=== PATIENT | female | born 1940 | race Caucasian/White ===

== ENCOUNTER 2016-10-09 08:21 | Emergency (ER) | payer MEDICARE, OTHER ==
[~2016-10-09] VITALS: Ht 165.1 cm; Wt 63.5 kg
[2016-10-09 08:26] VITALS: BP 157/75; PULSE 78; RESP 19; TEMP 98; O2SAT 96
--- NOTE | 2016-10-09 08:52 | PD ---
HPI Chief Complaint: Skin Problem Time Seen by Provider: 08:40 Travel History International Travel<30 days: No Contact w/Intl Traveler<30days: No Traveled to known affect area: No History of Present Illness HPI The patient was seen and examined in the presence of the nurse. She complains of rash. She's had a red rash on her arms primarily but also a bit on her legs for the last 2 months. She seen her primary physician and her multifocal button inspector for this and the rash is still present so she came to the ER. She has some minor itching. She's been placing hydrocortisone cream on it. Her multifocal button inspector told her it came from her pet PFSH Past Medical History Hx Anticoagulant Therapy: No Anxiety: Yes Cardiovascular Problems: Yes (2 [place]) High Cholesterol: Yes Cerebrovascular Accident: Yes (CVA) Diabetes: No Diminished Hearing: No Immunizations Current: Yes Menopausal: Yes Dilation and Curettage (D&C): Yes Past Surgical History Hysterectomy: Yes (Partial 1979.) Tonsillectomy: Yes Other Surgery: Yes (ANAL FISSURE) Social History Alcohol Use: No Tobacco Use: No Substance Use: No Allergies-Medications (Allergen,Severity, Reaction): Coded Allergies: Sulfa (Verified Allergy, Severe, WAS A CHILD WHEN HAPPENED AND NOT SURE WHAT HAPPENED, 10/09/16) Reported Meds & Prescriptions Reported Meds & Active Scripts Active No Active Prescriptions or Reported Medications Review of Systems General / Constitutional: No: Fever HENT: No: Headaches Cardiovascular: No: Chest Pain or Discomfort Physical Exam Narrative Psych: Normal mood and affect. Normal insight and judgment. SKIN: Inspection shows no ulcers. Palpation shows no induration or nodules. She has macular erythema on the forearms and a bit on the shins. No vesicle or raised lesions. Data Data Last Documented VS Vital Signs Date Time Temp Pulse Resp B/P Pulse Ox O2 Delivery O2 Flow Rate FiO2 10/09/16 08:26 98.0 78 19 157/75 96 MDM Medical Decision Making Medical Screen Exam Complete: Yes Emergency Medical Condition: Yes Medical Record Reviewed: Yes Differential Diagnosis Allergic reaction, dermatitis, eczema Narrative Course I have reviewed the patient's electronic record Recommending patient follow-up with her multifocal button inspector who has already seen this rash and instituted treatment. No emergent recommendations beyond that Diagnosis Primary Impression: Rash Additional Instructions: Follow-up with multifocal button inspector Med/Other Pt SpecificInfo: Other Scripts No Active Prescriptions or Reported Meds Disposition: 01 DISCHARGE HOME Condition: Clinton Mcdonald MD Oct 09, 2016 08:52
== END 2016-10-09 09:08 | disposition home or self-care (01) ==
LOC: PHED 08:21
DX: R21 Rash and other nonspecific skin eruption (principal); E78.00 Pure hypercholesterolemia, unspecified; F41.9 Anxiety disorder, unspecified; Z86.73 Personal history of transient ischemic attack (TIA), and cerebral infarction without residual deficits; I25.2 Old myocardial infarction
CPT/HCPCS: 99282

== ENCOUNTER 2017-01-12 14:52 | Emergency (ER) | payer MEDICARE, OTHER ==
--- NOTE | 2017-01-12 15:09 | PD ---
HPI Chief Complaint: Altered Mental Status Time Seen by Provider: 15:03 Travel History International Travel<30 days: No Contact w/Intl Traveler<30days: No History of Present Illness HPI Patient presents accompanied by her [id number]. Patient states that she doesn't think she is given a make it through the night. States things are shutting down. States her speech has been shutting down since yesterday. Denies any nausea vomiting diarrhea or fever. Denies any new chest pain shortness of breath urinary or bowel symptoms. Reports a rash that feels like it's on fire. Evaluated twice here in the emergency room and by dermatology and diagnosed as a contact dermatitis secondary to her pet. She does live at home alone. Significant workup for altered mental status approximately 10 months ago that was negative. Denies any medication changes. Past medical history for vertigo, diabetes, hyperlipidemia and anxiety. Currently on no medications. Random blood sugar 191. PFSH Past Medical History Hx Anticoagulant Therapy: No Anxiety: Yes Cardiovascular Problems: Yes (2 CT'S) High Cholesterol: Yes Cerebrovascular Accident: Yes (CVA) Diabetes: No (diet control) Diminished Hearing: No Immunizations Current: Yes Menopausal: Yes Dilation and Curettage (D&C): Yes Past Surgical History Hysterectomy: Yes (Partial 1979.) Tonsillectomy: Yes Other Surgery: Yes (ANAL FISSURE) Social History Alcohol Use: No Tobacco Use: No Substance Use: No Allergies-Medications (Allergen,Severity, Reaction): Coded Allergies: Sulfa (Verified Allergy, Severe, WAS A CHILD WHEN HAPPENED AND NOT SURE WHAT HAPPENED, 01/12/17) Reported Meds & Prescriptions Reported Meds & Active Scripts Active No Active Prescriptions or Reported Medications Review of Systems General / Constitutional: No: Fever Eyes: No: Visual changes HENT: No: Headaches Cardiovascular: No: Chest Pain or Discomfort Respiratory: No: Shortness of Breath Gastrointestinal: No: Abdominal Pain Genitourinary: No: Dysuria Musculoskeletal: No: Pain Skin: No Rash Neurologic: No: Weakness Psychiatric: No: Depression Endocrine: No: Polydipsia Hematologic/Lymphatic: No: Easy Bruising Physical Exam Narrative GENERAL: Well-nourished, well-developed patient. SKIN: Focused skin assessment warm/dry. HEAD: Normocephalic. EYES: No scleral icterus. No injection or drainage. NECK: Supple, trachea midline. No JVD or lymphadenopathy. CARDIOVASCULAR: Regular rate and rhythm without murmurs, gallops, or rubs. RESPIRATORY: Breath sounds equal bilaterally. No accessory muscle use. GASTROINTESTINAL: Abdomen soft, non-tender, nondistended. MUSCULOSKELETAL: No cyanosis, or edema. BACK: Nontender without obvious deformity. No CVA tenderness. Data Data Last Documented VS Vital Signs Date Time Temp Pulse Resp B/P Pulse Ox O2 Delivery O2 Flow Rate FiO2 01/12/17 15:16 93 Room Air 01/12/17 15:16 97.8 80 14 181/91 Orders Ammonia (01/12/17 15:03) Complete Blood Count With Diff (01/12/17 15:03) Comprehensive Metabolic Panel (01/12/17 15:03) Lactic Acid Sepsis Protocol (01/12/17 15:03) Urinalysis - C+S If Indicated (01/12/17 15:03) Blood Culture (01/12/17 15:03) Ct Brain W/O Iv Contrast(Rout) (01/12/17 15:03) Blood Glucose (01/12/17 15:03) Ecg Monitoring (01/12/17 15:03) Iv Access Insert/Monitor (01/12/17 15:03) Oximetry (01/12/17 15:03) Sodium Chloride 0.9% Flush (Ns Flush) (01/12/17 15:15) Labs Laboratory Tests Test 01/12/17 15:10 White Blood Count 8.1 TH/MM3 Red Blood Count 4.60 MIL/MM3 Hemoglobin 13.3 GM/DL Hematocrit 39.3 % Mean Corpuscular Volume 85.5 FL Mean Corpuscular Hemoglobin 28.9 PG Mean Corpuscular Hemoglobin 33.8 % Concent Red Cell Distribution Width 12.2 % Platelet Count 240 TH/MM3 Mean Platelet Volume 7.0 FL Neutrophils (%) (Auto) 65.7 % Lymphocytes (%) (Auto) 24.0 % Monocytes (%) (Auto) 7.6 % Eosinophils (%) (Auto) 2.0 % Basophils (%) (Auto) 0.7 % Neutrophils # (Auto) 5.3 TH/MM3 Lymphocytes # (Auto) 1.9 TH/MM3 Monocytes # (Auto) 0.6 TH/MM3 Eosinophils # (Auto) 0.2 TH/MM3 Basophils # (Auto) 0.1 TH/MM3 CBC Comment DIFF FINAL Differential Comment Sodium Level 141 MEQ/L Potassium Level 3.6 MEQ/L Chloride Level 105 MEQ/L Carbon Dioxide Level 27.4 MEQ/L Anion Gap 9 MEQ/L Blood Urea Nitrogen 22 MG/DL Creatinine 1.20 MG/DL Estimat Glomerular Filtration 44 ML/MIN Rate Random Glucose 169 MG/DL Lactic Acid Level 1.1 mmol/L Calcium Level 8.8 MG/DL Total Bilirubin 0.2 MG/DL Aspartate Amino Transf 19 U/L (AST/SGOT) Alanine Aminotransferase 28 U/L (ALT/SGPT) Alkaline Phosphatase 185 U/L Ammonia 23 MCMOL/L Total Protein 7.5 GM/DL Albumin 3.7 GM/DL MDM Medical Decision Making Medical Screen Exam Complete: Yes Emergency Medical Condition: Yes Differential Diagnosis Failure to thrive, dementia, UTI, sepsis, fever, contact dermatitis Narrative Course Assessment and plan discussed with patient and [id number] at bedside HemaPrompt Point of Care Comment Case discussed and care transferred to Dr Ortiz Scripts No Active Prescriptions or Reported Meds Dwayne Chavarria MD Jan 12, 2017 15:09
[2017-01-12] MEDS ORDERED: SODIUM CHLORIDE 0.9% FLUSH 10 ML FLUSH IVF PRN (15:15)
[2017-01-12 15:16] VITALS: BP 181/91; PULSE 80; RESP 14; TEMP 97.8; O2SAT 93
[2017-01-12 15:19] LABS: AUTOMATED NEUTROPHIL # 5.3 TH/MM3 (1.8-7.7); BASOPHIL # 0.1 TH/MM3 (0-0.2); BASOPHIL % 0.7 % (0.0-2.0); EOSINOPHIL # 0.2 TH/MM3 (0-0.4); HEMATOCRIT 39.3 % (35.0-46.0); HEMO FLAGS DIFF FINAL; LYMPHOCYTE # 1.9 TH/MM3 (1.0-4.8); MEAN CELL VOLUME 85.5 FL (80.0-100.0); MEAN CORPUSCULAR HEMOGLOBIN 28.9 PG (27.0-34.0); MEAN CORPUSCULAR HGB CONC 33.8 % (32.0-36.0); MONO % 7.6 % (0.0-8.0); NEUT % 65.7 % (16.0-70.0); PLATELET COUNT 240 TH/MM3 (150-450); RED CELL DISTRIBUTION WIDTH 12.2 % (11.6-17.2); WHITE BLOOD COUNT 8.1 TH/MM3 (4.0-11.0)
[2017-01-12 15:27] LABS: CHLORIDE 105 MEQ/L (98-107); POTASSIUM 3.6 MEQ/L (3.5-5.1); SODIUM (NA) 141 MEQ/L (136-145)
[2017-01-12 15:31] LABS: ANION GAP 9 MEQ/L (5-15); BICARBONATE 27.4 MEQ/L (21.0-32.0); BLOOD UREA NITROGEN 22 MG/DL (7-18)
--- NOTE | 2017-01-12 15:32 | RADHPO ---
EXAM DATE/TIME: 01/12/2017 15:17 [facility] COMPARISON: CT BRAIN W/O CONTRAST, March 26, 2016, 22:28. INDICATIONS : Altered mental status. RADIATION DOSE: 59.48 CTDIvol (mGy) MEDICAL HISTORY : Myocardial infarction. Cerebrovascular disease. SURGICAL HISTORY : Tonsillectomy. ENCOUNTER: Initial ACUITY: 1 day PAIN SCALE: 0/10 LOCATION: cranial TECHNIQUE: Multiple contiguous axial images were obtained of the head. Using automated exposure control and adj ustment of the mA and/or kV according to patient size, radiation dose was kept as low as reasonably a chievable to obtain optimal diagnostic quality images. FINDINGS: CEREBRUM: The ventricles are normal for age. No evidence of midline shift, mass lesion, hemorrhage or acute in farction. No extra-axial fluid collections are seen. POSTERIOR FOSSA: The cerebellum and brainstem are intact. The 4th ventricle is midline. The cerebellopontine angle i s unremarkable. EXTRACRANIAL: The visualized portion of the orbits is intact. SKULL: The calvaria is intact. No evidence of skull fracture. CONCLUSION: Age-appropriate atrophy. No acute findings. Nathan Peres MD on January 12, 2017 at 15:30 Board Certified Radiologist. This report was verified electronically.
[2017-01-12 15:34] LABS: ALT (GPT) 28 U/L (10-53); AST (GOT) 19 U/L (15-37); GLOMERULAR FILTRATION RATE 44 ML/MIN (>89)
[2017-01-12 15:35] LABS: TOTAL BILIRUBIN ADULT 0.2 MG/DL (0.2-1.0)
[2017-01-12 15:37] LABS: ALKALINE PHOSPHATASE 185 U/L (45-117)
[2017-01-12 16:05] LABS: BLOOD, URINE NEG (NEG); GLUCOSE,URINE NEG (NEG); KETONE, URINE NEG (NEG); NITRITE,URINE NEG (NEG)
[2017-01-12 16:08] VITALS: BP 139/50; PULSE 76; RESP 18; O2SAT 99
[2017-01-12 16:16] LABS: METHOD OF COLLECTION CATH; URINE COLOR YELLOW (YELLW/STRAW)
[2017-01-12 16:17] LABS: COMMENT (UR) CULTURE INDICATED; CULTURE IF INDICATED CULTURE INDICATED; HYALINE CAST, URINE 0-2 /lpf (RARE); SQUAMOUS EPITHELIAL CELL URINE 0-5 /hpf (0-5)
[2017-01-12] MEDS ORDERED: MACR100C2 PO (16:30)
--- NOTE | 2017-01-12 16:38 | PD ---
Physical Exam Date Seen by Provider: Jan 12, 2017 Time Seen by Provider: 16:26 Narrative This 76-year-old female is complaining of feeling very tired. She was seen initially by Dr. Chavarria. She is currently on no medication. She has not had fever or chills. Extensive workup was ordered. CT of the brain is negative. Her blood work is unremarkable. Urinalysis does show equivocal evidence of UTI with trace leukocyte esterase and 6-8 white cells. She will be treated for this as she is having somewhat vague symptoms that are not explained otherwise. Data Data Last Documented VS Vital Signs Date Time Temp Pulse Resp B/P Pulse Ox O2 Delivery O2 Flow Rate FiO2 01/12/17 16:08 76 18 139/50 99 Room Air 01/12/17 15:16 97.8 Orders Ammonia (01/12/17 15:03) Complete Blood Count With Diff (01/12/17 15:03) Comprehensive Metabolic Panel (01/12/17 15:03) Lactic Acid Sepsis Protocol (01/12/17 15:03) Urinalysis - C+S If Indicated (01/12/17 15:03) Blood Culture (01/12/17 15:03) Ct Brain W/O Iv Contrast(Rout) (01/12/17 15:03) Blood Glucose (01/12/17 15:03) Ecg Monitoring (01/12/17 15:03) Iv Access Insert/Monitor (01/12/17 15:03) Oximetry (01/12/17 15:03) Sodium Chloride 0.9% Flush (Ns Flush) (01/12/17 15:15) Urine Culture (01/12/17 15:55) Labs Laboratory Tests Test 01/12/17 01/12/17 15:10 15:55 White Blood Count 8.1 TH/MM3 Red Blood Count 4.60 MIL/MM3 Hemoglobin 13.3 GM/DL Hematocrit 39.3 % Mean Corpuscular Volume 85.5 FL Mean Corpuscular Hemoglobin 28.9 PG Mean Corpuscular Hemoglobin 33.8 % Concent Red Cell Distribution Width 12.2 % Platelet Count 240 TH/MM3 Mean Platelet Volume 7.0 FL Neutrophils (%) (Auto) 65.7 % Lymphocytes (%) (Auto) 24.0 % Monocytes (%) (Auto) 7.6 % Eosinophils (%) (Auto) 2.0 % Basophils (%) (Auto) 0.7 % Neutrophils # (Auto) 5.3 TH/MM3 Lymphocytes # (Auto) 1.9 TH/MM3 Monocytes # (Auto) 0.6 TH/MM3 Eosinophils # (Auto) 0.2 TH/MM3 Basophils # (Auto) 0.1 TH/MM3 CBC Comment DIFF FINAL Differential Comment Sodium Level 141 MEQ/L Potassium Level 3.6 MEQ/L Chloride Level 105 MEQ/L Carbon Dioxide Level 27.4 MEQ/L Anion Gap 9 MEQ/L Blood Urea Nitrogen 22 MG/DL Creatinine 1.20 MG/DL Estimat Glomerular Filtration 44 ML/MIN Rate Random Glucose 169 MG/DL Lactic Acid Level 1.1 mmol/L Calcium Level 8.8 MG/DL Total Bilirubin 0.2 MG/DL Aspartate Amino Transf 19 U/L (AST/SGOT) Alanine Aminotransferase 28 U/L (ALT/SGPT) Alkaline Phosphatase 185 U/L Ammonia 23 MCMOL/L Total Protein 7.5 GM/DL Albumin 3.7 GM/DL Urine Collection Type CATH Urine Color YELLOW Urine Turbidity CLEAR Urine pH 5.0 Urine Specific [place] 1.023 Urine Protein NEG mg/dL Urine Glucose (UA) NEG mg/dL Urine Ketones NEG mg/dL Urine Occult Blood NEG Urine Nitrite NEG Urine Bilirubin NEG Urine Leukocyte Esterase SMALL Urine WBC 6-8 /hpf Urine Squamous Epithelial 0-5 /hpf Cells Urine Amorphous Sediment FEW Urine Hyaline Casts 0-2 /lpf Microscopic Urinalysis Comment CULTURE INDICATED MDM Medical Record Reviewed: Yes Supervised Visit with ELSY: No Differential Diagnosis Differential includes alleged right imbalance, UTI, Narrative Course Urine shows equivocal UTI Diagnosis Primary Impression: UTI (urinary tract infection) Qualified Code: N30.00 - Acute cystitis without hematuria Scripts Nitrofurantoin Monohydrate Macrocrystals (Macrobid)100 Mg [id number] Mg PO BID 7 Days Ref 0 Prov:Ryder Carney MD 01/12/17 Disposition: 01 DISCHARGE HOME Condition: Stable Ryder Carney MD Jan 12, 2017 16:38
== END 2017-01-12 16:50 | disposition home or self-care (01) ==
LOC: PHED 14:52
DX: N39.0 Urinary tract infection, site not specified (principal); R21 Rash and other nonspecific skin eruption; E11.9 Type 2 diabetes mellitus without complications; E78.00 Pure hypercholesterolemia, unspecified; E78.5 Hyperlipidemia, unspecified; I25.2 Old myocardial infarction; Z86.73 Personal history of transient ischemic attack (TIA), and cerebral infarction without residual deficits
CPT/HCPCS: 70450; 80053; 81001; 82140; 83605; 85025; 86403; 87040; 87077; 87086; 87186

== ENCOUNTER 2017-01-25 17:01 | Emergency (ER) | payer MEDICARE, OTHER ==
[~2017-01-25] VITALS: Ht 165.1 cm; Wt 63.0 kg
[~2017-01-25 17:01] MED LIST: MACR100C2 PO
[2017-01-25 17:06] VITALS: BP 159/90; PULSE 72; RESP 16; TEMP 98; O2SAT 96
[2017-01-25 18:23] LABS: AUTOMATED NEUTROPHIL # 6.3 TH/MM3 (1.8-7.7); BASOPHIL # 0.4 TH/MM3 (0-0.2); EOSINOPHIL # 0.3 TH/MM3 (0-0.4); EOSINOPHIL % 2.9 % (0.0-4.0); LYMPH % 21.9 % (9.0-44.0); LYMPHOCYTE # 2.1 TH/MM3 (1.0-4.8); MEAN CELL VOLUME 85.7 FL (80.0-100.0); MEAN CORPUSCULAR HEMOGLOBIN 28.8 PG (27.0-34.0); MEAN CORPUSCULAR HGB CONC 33.6 % (32.0-36.0); MONO % 6.5 % (0.0-8.0); NEUT % 64.7 % (16.0-70.0); PLATELET COUNT 246 TH/MM3 (150-450); RED BLOOD COUNT 4.31 MIL/MM3 (4.00-5.30); RED CELL DISTRIBUTION WIDTH 12.1 % (11.6-17.2); WHITE BLOOD COUNT 9.7 TH/MM3 (4.0-11.0)
[2017-01-25 18:28] LABS: HEMO FLAGS DIFF FINAL
[2017-01-25 18:33] LABS: CHLORIDE 105 MEQ/L (98-107); SODIUM (NA) 141 MEQ/L (136-145)
[2017-01-25 18:37] LABS: ANION GAP 9 MEQ/L (5-15); BICARBONATE 27.5 MEQ/L (21.0-32.0); BLOOD UREA NITROGEN 19 MG/DL (7-18)
[2017-01-25 18:40] LABS: ALT (GPT) 28 U/L (10-53); AST (GOT) 22 U/L (15-37); GLOMERULAR FILTRATION RATE 56 ML/MIN (>89)
[2017-01-25 18:41] LABS: TOTAL BILIRUBIN ADULT 0.2 MG/DL (0.2-1.0)
[2017-01-25 18:43] LABS: ALKALINE PHOSPHATASE 171 U/L (45-117)
--- NOTE | 2017-01-25 19:06 | RADHPO ---
EXAM DATE/TIME: 01/25/2017 17:56 [facility] COMPARISON: CHEST SINGLE AP, March 26, 2016, 23:15. INDICATIONS : Patient states she woke up with shortness of breath today. MEDICAL HISTORY : None. SURGICAL HISTORY : None. ENCOUNTER: Initial ACUITY: 1 day PAIN SCORE: 0/10 LOCATION: Bilateral FINDINGS: There is interstitial lung disease predominantly at the lung bases and lung periphery in a pattern ch aracteristic of pulmonary fibrosis. No effusion. Heart size upper limits normal. Tortuous aorta. CONCLUSION: 1. Pulmonary fibrosis in a pattern that could be characteristic of usual interstitial pneumonitis. Fi ndings are stable compared with March 2016. No new infiltrate or effusion. Rafael Miller MD on January 25, 2017 at 19:03 Board Certified Radiologist. This report was verified electronically.
[2017-01-25 19:15] LABS: BLOOD, URINE NEG (NEG); GLUCOSE,URINE NEG (NEG); KETONE, URINE NEG (NEG); NITRITE,URINE NEG (NEG); PH, URINE 5.5 (5.0-8.5)
[2017-01-25 19:25] LABS: RBC, URINE 0-2 /hpf (0-3); SQUAMOUS EPITHELIAL CELL URINE 0-5 /hpf (0-5); URINE COLOR YELLOW (YELLW/STRAW)
[2017-01-25 19:26] LABS: BACTERIA, URINE FEW /hpf; COMMENT (UR) CULT NOT INDICATED; CULTURE IF INDICATED CULT NOT INDICATED
--- NOTE | 2017-01-25 19:33 | PD ---
HPI Chief Complaint: General Weakness Time Seen by Provider: 17:25 Travel History International Travel<30 days: No Contact w/Intl Traveler<30days: No Traveled to known affect area: No History of Present Illness HPI Patient is a 76-year-old female who comes in with complaints of generalized weakness. She says that she was at home and she fell asleep and she didn't take of breath so she woke up. Patient was here about a week ago when she said that she felt like she "was not going to make it through the night." At that time a complete workup was done and she was found to have some white blood cells in her urine. She was discharged her Macrobid, which she says she has completed. She has no specific complaints at this time. She denies any pain. She denies any chest pain, shortness of breath, abdominal pain. She has not had fever or chills. She had breakfast with her son this morning. She says that she has a lot of anxiety. PFSH Past Medical History Hx Anticoagulant Therapy: No Anxiety: Yes Cardiovascular Problems: Yes (2 [place]'S) High Cholesterol: Yes Cerebrovascular Accident: Yes (CVA) Diabetes: Yes (diet control) Patient Takes Glucophage: No Diminished Hearing: No Immunizations Current: Yes ?: Not Menopausal: Yes Dilation and Curettage (D&C): Yes Past Surgical History Hysterectomy: Yes (Partial 1979.) Tonsillectomy: Yes Other Surgery: Yes (ANAL FISSURE) Social History Alcohol Use: No Tobacco Use: No Substance Use: No Allergies-Medications (Allergen,Severity, Reaction): Coded Allergies: Sulfa (Verified Allergy, Severe, WAS A CHILD WHEN HAPPENED AND NOT SURE WHAT HAPPENED, 01/25/17) Reported Meds & Prescriptions Reported Meds & Active Scripts Active No Active Prescriptions or Reported Medications Review of Systems Except as stated in HPI: all other systems reviewed are Neg General / Constitutional: No: Fever, Chills HENT: No: Headaches, Lightheadedness Cardiovascular: No: Chest Pain or Discomfort Respiratory: No: Shortness of Breath Gastrointestinal: No: Nausea, Vomiting Genitourinary: No: Dysuria Musculoskeletal: No: Myalgias Skin: No Rash, No Change in Pigmentation Neurologic: No: Weakness, Dizziness Psychiatric: Positive: Anxiety Physical Exam Narrative GENERAL: Awake and alert, in no acute distress. SKIN: Focused skin assessment warm/dry. HEAD: Atraumatic. Normocephalic. EYES: Pupils equal and round. No scleral icterus. ENT: Mucous membranes pink and moist. NECK: Trachea midline. No JVD. CARDIOVASCULAR: Regular rate and rhythm. No murmur appreciated. RESPIRATORY: No accessory muscle use. Clear to auscultation. Breath sounds equal bilaterally. GASTROINTESTINAL: Abdomen soft, non-tender, nondistended. MUSCULOSKELETAL: No obvious deformities. No clubbing. No cyanosis. No edema. NEUROLOGICAL: Awake and alert. No obvious cranial nerve deficits. Motor grossly within normal limits. Normal speech. PSYCHIATRIC: Appropriate mood and affect; insight and judgment normal. Data Data Last Documented VS Vital Signs Date Time Temp Pulse Resp B/P Pulse Ox O2 Delivery O2 Flow Rate FiO2 01/25/17 17:06 98.0 72 16 159/90 96 Orders Complete Blood Count With Diff (01/25/17 17:42) Comprehensive Metabolic Panel (01/25/17 17:42) Thyroid Stimulating Hormone (01/25/17 17:42) Electrocardiogram (01/25/17 ) Urinalysis - C+S If Indicated (01/25/17 17:42) Troponin I (01/25/17 17:42) Chest, Pa & Lat (01/25/17 ) Labs Laboratory Tests Test 01/25/17 01/25/17 18:15 19:00 White Blood Count 9.7 TH/MM3 Red Blood Count 4.31 MIL/MM3 Hemoglobin 12.4 GM/DL Hematocrit 37.0 % Mean Corpuscular Volume 85.7 FL Mean Corpuscular Hemoglobin 28.8 PG Mean Corpuscular Hemoglobin 33.6 % Concent Red Cell Distribution Width 12.1 % Platelet Count 246 TH/MM3 Mean Platelet Volume 7.2 FL Neutrophils (%) (Auto) 64.7 % Lymphocytes (%) (Auto) 21.9 % Monocytes (%) (Auto) 6.5 % Eosinophils (%) (Auto) 2.9 % Basophils (%) (Auto) 4.0 % Neutrophils # (Auto) 6.3 TH/MM3 Lymphocytes # (Auto) 2.1 TH/MM3 Monocytes # (Auto) 0.6 TH/MM3 Eosinophils # (Auto) 0.3 TH/MM3 Basophils # (Auto) 0.4 TH/MM3 CBC Comment DIFF FINAL Differential Comment Sodium Level 141 MEQ/L Potassium Level 4.0 MEQ/L Chloride Level 105 MEQ/L Carbon Dioxide Level 27.5 MEQ/L Anion Gap 9 MEQ/L Blood Urea Nitrogen 19 MG/DL Creatinine 0.97 MG/DL Estimat Glomerular Filtration 56 ML/MIN Rate Random Glucose 107 MG/DL Calcium Level 8.7 MG/DL Total Bilirubin 0.2 MG/DL Aspartate Amino Transf 22 U/L (AST/SGOT) Alanine Aminotransferase 28 U/L (ALT/SGPT) Alkaline Phosphatase 171 U/L Troponin I LESS THAN 0.02 NG/ML Total Protein 7.2 GM/DL Albumin 3.5 GM/DL Thyroid Stimulating Hormone 2.260 uIU/ML 3rd Gen Urine Color YELLOW Urine Turbidity CLEAR Urine pH 5.5 Urine Specific [place] 1.009 Urine Protein NEG mg/dL Urine Glucose (UA) NEG mg/dL Urine Ketones NEG mg/dL Urine Occult Blood NEG Urine Nitrite NEG Urine Bilirubin NEG Urine Leukocyte Esterase SMALL Urine RBC 0-2 /hpf Urine WBC 6-8 /hpf Urine Squamous Epithelial 0-5 /hpf Cells Urine Bacteria FEW /hpf Microscopic Urinalysis Comment CULT NOT INDICATED MDM Medical Decision Making Medical Screen Exam Complete: Yes Emergency Medical Condition: Yes Medical Record Reviewed: Yes Differential Diagnosis Anxiety versus electrolyte abnormality versus infection Narrative Course Patient is a 76-year-old female comes in with vague complaints of weakness. Exam shows no acute abnormalities. IV established, labs sent. Labs show no acute abnormalities, are similar to her labs when she was here a week and half ago. I spoke with her son and daughter who say that she seems to very anxious when her male friend is not spending time with her. They have noticed that she seems to do things in seeking attention. She has 4 children who live in the area and help her. They say that her house is clean though she does have a lot of objects in the house. She seems to be feeding herself. They are not concerned that she is unable to care for self at home. She is alert and oriented times 4. I discussed with the son and daughter possible dementia versus anxiety versus attention seeking. They're comfortable taking their mother home at this time. I advised him to follow-up with a primary care doctor. I advised him to bring her back at any time for any worsening symptoms. Diagnosis Primary Impression: Weakness Patient Instructions: Anxiety (ED), General Instructions, Weakness (ED) Additional Instructions: Follow up with a primary care doctor. Return to the ED as needed for any worsening symptoms. Scripts No Active Prescriptions or Reported Meds Disposition: 01 DISCHARGE HOME Condition: Stable Marycruz Dhaliwal MD January 25, 2017 19:33
[2017-01-25 19:36] VITALS: BP 191/88; PULSE 78; RESP 20; O2SAT 98
[2017-01-25 19:54] VITALS: BP 171/75
--- NOTE | 2017-01-25 21:37 | EKG ---
Date Performed: 01/25/2017 Time Performed: 17:44:52 PTAGE: 76 years EKG: Sinus rhythm Poor R wave progression - cannot rule out anteroseptal infarct Left ventricular hypertrophy Abnormal ECG PREVIOUS TRACING : 03/26/2016 21.55 DOCTOR: Dary Monroy Interpretating Date/Time 01/25/2017 21:35:58
== END 2017-01-25 20:00 | disposition home or self-care (01) ==
LOC: PHED 17:01
DX: R53.1 Weakness (principal); E78.00 Pure hypercholesterolemia, unspecified; F41.9 Anxiety disorder, unspecified; Z86.73 Personal history of transient ischemic attack (TIA), and cerebral infarction without residual deficits; I25.2 Old myocardial infarction
CPT/HCPCS: 71020; 80053; 81001; 84443; 84484; 85025; 93005

== ENCOUNTER 2017-07-01 11:54 | Emergency (ER) | payer MEDICARE, OTHER ==
[~2017-07-01] VITALS: Ht 165.1 cm; Wt 61.0 kg
[2017-07-01 12:00] VITALS: BP 140/79; PULSE 72; RESP 16; TEMP 97.8; O2SAT 97
[2017-07-01] MEDS ORDERED: SODIUM CHLORIDE 0.9% FLUSH 10 ML FLUSH IVF PRN (12:30)
[2017-07-01 12:45] VITALS: BP_SYST 140; BP_SYST 149; BP_DIAS 74; BP_DIAS 79; PULSE 69; RESP 16; O2SAT 99
[2017-07-01 12:46] VITALS: RESP 16; O2SAT 99
[2017-07-01 12:47] LABS: AUTOMATED NEUTROPHIL # 5.9 TH/MM3 (1.8-7.7); BASOPHIL % 0.4 % (0.0-2.0); EOSINOPHIL # 0.1 TH/MM3 (0-0.4); EOSINOPHIL % 1.6 % (0.0-4.0); HEMATOCRIT 36.7 % (35.0-46.0); HEMO FLAGS DIFF FINAL; LYMPH % 20.3 % (9.0-44.0); LYMPHOCYTE # 1.7 TH/MM3 (1.0-4.8); MEAN CORPUSCULAR HEMOGLOBIN 29.1 PG (27.0-34.0); MEAN CORPUSCULAR HGB CONC 34.7 % (32.0-36.0); MONO % 7.1 % (0.0-8.0); NEUT % 70.6 % (16.0-70.0); PLATELET COUNT 202 TH/MM3 (150-450); RED BLOOD COUNT 4.36 MIL/MM3 (4.00-5.30); RED CELL DISTRIBUTION WIDTH 12.1 % (11.6-17.2); WHITE BLOOD COUNT 8.3 TH/MM3 (4.0-11.0)
--- NOTE | 2017-07-01 12:48 | PD ---
HPI Chief Complaint: Back/ Neck Pain or Injury Time Seen by Provider: 12:13 Travel History International Travel<30 days: No Contact w/Intl Traveler<30days: No Traveled to known affect area: No History of Present Illness HPI This is a 77-year-old female who presents to the emergency department with 1 month of intermittent pain between her scapula blades, intermittent, worse when she gets anxious or nervous about something, improved with resting. She says this pain started right around the time that her boyfriend left her area ever since then she's been getting more and more worried and she's been noticing this pain recurs. She doesn't have a primary care physician and doesn't know of any medical problems that she has. She denies any chest pain or trouble breathing. PFSH Past Medical History Hx Anticoagulant Therapy: No Anxiety: Yes Cardiovascular Problems: Yes (hx of [place]) High Cholesterol: Yes Cerebrovascular Accident: Yes (CVA) Diabetes: Yes (diet control) Patient Takes Glucophage: No Diminished Hearing: Yes ([place]) Immunizations Current: Yes Myocardial Infarction: Yes (x1 at age 36 ?) Tetanus Vaccination: > 5 Years Influenza Vaccination: No ?: Not Menopausal: Yes Dilation and Curettage (D&C): Yes Past Surgical History Hysterectomy: Yes (Partial 1979.) Tonsillectomy: Yes Other Surgery: Yes (ANAL FISSURE) Social History Alcohol Use: No Tobacco Use: No Substance Use: No Allergies-Medications (Allergen,Severity, Reaction): Coded Allergies: Sulfa (Sulfonamide Antibiotics) (Unverified Allergy, Severe, WAS A CHILD WHEN HAPPENED AND NOT SURE WHAT HAPPENED, 07/01/17) Reported Meds & Prescriptions Reported Meds & Active Scripts Active No Active Prescriptions or Reported Medications Review of Systems Except as stated in HPI: all other systems reviewed are Neg Physical Exam Narrative GENERAL:Well appearing, no acute distress SKIN: Focused skin assessment warm and dry. HEAD: Atraumatic. Normocephalic. EYES: Pupils equal and round. No injection or drainage. ENT: Moist mucous membranes NECK: Trachea midline. CARDIOVASCULAR: Regular rate and rhythm. No murmur appreciated. RESPIRATORY: Clear to auscultation. Breath sounds equal bilaterally. GASTROINTESTINAL: Abdomen soft, non-tender, nondistended. MUSCULOSKELETAL: No focal thoracic vertebral tenderness. NEUROLOGICAL: Awake and alert. No obvious cranial nerve deficits. Moving all extremities. PSYCHIATRIC: Somewhat anxious. Data Data Last Documented VS Vital Signs Date Time Temp Pulse Resp B/P (MAP) Pulse Ox O2 Delivery O2 Flow Rate FiO2 07/01/17 13:54 67 16 07/01/17 13:15 130/55 (80) 100 Room Air 07/01/17 12:46 2.00 07/01/17 12:00 97.8 Orders Orders Electrocardiogram (07/01/17 12:25) Complete Blood Count With Diff (07/01/17 12:25) Comprehensive Metabolic Panel (07/01/17 12:25) Troponin I (07/01/17 12:25) Chest, Single Ap (07/01/17 12:25) Ecg Monitoring (07/01/17 12:25) Bilateral Bp Monitoring (07/01/17 12:25) Iv Access Insert/Monitor (07/01/17 12:25) Oximetry (07/01/17 12:25) Oxygen Administration (07/01/17 12:25) Sodium Chloride 0.9% Flush (Ns Flush) (07/01/17 12:30) Ct Thor Spine W/O Contrast (07/01/17 ) Labs Laboratory Tests Test 07/01/17 12:35 White Blood Count 8.3 TH/MM3 Red Blood Count 4.36 MIL/MM3 Hemoglobin 12.7 GM/DL Hematocrit 36.7 % Mean Corpuscular Volume 84.0 FL Mean Corpuscular Hemoglobin 29.1 PG Mean Corpuscular Hemoglobin Concent 34.7 % Red Cell Distribution Width 12.1 % Platelet Count 202 TH/MM3 Mean Platelet Volume 7.0 FL Neutrophils (%) (Auto) 70.6 % Lymphocytes (%) (Auto) 20.3 % Monocytes (%) (Auto) 7.1 % Eosinophils (%) (Auto) 1.6 % Basophils (%) (Auto) 0.4 % Neutrophils # (Auto) 5.9 TH/MM3 Lymphocytes # (Auto) 1.7 TH/MM3 Monocytes # (Auto) 0.6 TH/MM3 Eosinophils # (Auto) 0.1 TH/MM3 Basophils # (Auto) 0.0 TH/MM3 CBC Comment DIFF FINAL Differential Comment Blood Urea Nitrogen 23 MG/DL Creatinine 1.00 MG/DL Random Glucose 163 MG/DL Total Protein 7.1 GM/DL Albumin 3.5 GM/DL Calcium Level 8.6 MG/DL Alkaline Phosphatase 153 U/L Aspartate Amino Transf (AST/SGOT) 19 U/L Alanine Aminotransferase (ALT/SGPT) 26 U/L Total Bilirubin 0.1 MG/DL Sodium Level 139 MEQ/L Potassium Level 4.2 MEQ/L Chloride Level 104 MEQ/L Carbon Dioxide Level 28.8 MEQ/L Anion Gap 6 MEQ/L Estimat Glomerular Filtration Rate 54 ML/MIN Troponin I LESS THAN 0.02 NG/ML MDM Medical Decision Making Medical Screen Exam Complete: Yes Emergency Medical Condition: Yes Interpretation(s) Afebrile, no tachycardia, normotensive No leukocytosis Electrolytes are reassuring Troponin is normal EKG: Q waves in the inferior leads, first-degree heart block Last 24 hours Impressions Chest X-Ray 07/01/17 1225 Signed Impressions: Service Date/Time: Saturday, July 01, 2017 12:45 - CONCLUSION: No acute disease. No significant change has occurred. Satya Gary MD Thoracic Spine CT 07/01/17 0000 Signed Impressions: Service Date/Time: Saturday, July 01, 2017 13:10 - CONCLUSION: 1. Mild degenerative changes of the thoracic spine. No acute abnormality. 2. COPD changes within the pulmonary parenchyma. Paul Mckeon MD Differential Diagnosis Acute coronary syndrome, compression fracture, musculoskeletal back pain, unstable angina Narrative Course This is a 77-year-old female who presents to the emergency department with 1 month of intermittent thoracic back pain. She was placed on a monitor and an IV was established. EKG demonstrates some Q waves in the inferior leads. She says she had a heart attack in her 30s that required no intervention and has had no problems since. Labs are reassuring. CT of the T-spine is reassuring. I had along conversation with the patient. I offered her observation for serial cardiac enzymes and stress test. She has a dog at home that's blind and she feels is very dependent on her. She refuses to stay in the hospital overnight for stress test. She has decision-making capacity on my exam and I can't hold her against her will. She understands that we can't rule out a blockage in her heart without further testing. She thinks that this is likely related to the loss of her close friend who moved out a month ago. I tend to agree that I would feel better if she found a primary care physician to further evaluate her heart. She was referred to [place] [facility] and to the [facility] heart group. Diagnosis Primary Impression: Back pain Qualified Codes: M54.6 - Pain in thoracic spine; G89.29 - Other chronic pain Referrals: Sybil Schulte [facility] Patient Instructions: General Instructions Additional Instructions: If you develop severe chest pain, shortness of breath, sweating, lightheadedness , dizziness or difficulty breathing return to the emergency department immediately. Followup with your primary care physician as soon as possible. Med/Other Pt SpecificInfo: No Change to Meds Scripts No Active Prescriptions or Reported Meds Disposition: 01 DISCHARGE HOME Condition: Stable Marjorie Shetty MD Jul 01, 2017 12:48
[2017-07-01 12:57] LABS: CHLORIDE 104 MEQ/L (98-107); POTASSIUM 4.2 MEQ/L (3.5-5.1); SODIUM (NA) 139 MEQ/L (136-145)
--- NOTE | 2017-07-01 12:57 | RADRPT ---
EXAM DATE/TIME: 07/01/2017 12:45 [facility] COMPARISON: CHEST SINGLE AP, March 26, 2016, 23:15. INDICATIONS : Chest pain. MEDICAL HISTORY : Myocardial infarction. Cerebrovascular disease. SURGICAL HISTORY : Tonsillectomy. ENCOUNTER: Initial ACUITY: 1 day PAIN SCORE: 4/10 LOCATION: Bilateral chest FINDINGS: A single view of the chest demonstrates the lungs to be symmetrically aerated without evidence of mas s, infiltrate or effusion. The cardiomediastinal contours are unremarkable. Osseous structures are intact. Persistent by basilar fine interstitial fibrotic lung disease CONCLUSION: No acute disease. No significant change has occurred. Satya Gary MD on July 01, 2017 at 12:55 Board Certified Radiologist. This report was verified electronically.
[2017-07-01 13:00] LABS: ANION GAP 6 MEQ/L (5-15); BICARBONATE 28.8 MEQ/L (21.0-32.0)
[2017-07-01 13:01] LABS: BLOOD UREA NITROGEN 23 MG/DL (7-18)
[2017-07-01 13:03] LABS: ALT (GPT) 26 U/L (10-53); AST (GOT) 19 U/L (15-37)
[2017-07-01 13:04] LABS: GLOMERULAR FILTRATION RATE 54 ML/MIN (>89)
[2017-07-01 13:05] LABS: TOTAL BILIRUBIN ADULT 0.1 MG/DL (0.2-1.0)
[2017-07-01 13:06] LABS: ALKALINE PHOSPHATASE 153 U/L (45-117)
[2017-07-01 13:15] VITALS: BP 130/55; PULSE 70; RESP 16; O2SAT 100
--- NOTE | 2017-07-01 13:48 | RADRPT ---
EXAM DATE/TIME: 07/01/2017 13:10 [facility] COMPARISON: CT BRAIN W/O CONTRAST, January 12, 2017, 15:17. INDICATIONS : Upper back pain. No injury. RADIATION DOSE: 21.32 CTDIvol (mGy) MEDICAL HISTORY : Cerebrovascular disease. Myocardial infarction. SURGICAL HISTORY : None. ENCOUNTER: Initial ACUITY: 1 month PAIN SCALE: 3/10 LOCATION: spine TECHNIQUE: Volumetric scanning of the thoracic spine was performed. Multiplanar reconstructions in the sagittal , coronal and oblique axial planes were performed. Using automated exposure control and adjustment o f the mA and/or kV according to patient size, radiation dose was kept as low as reasonably achievable to obtain optimal diagnostic quality images. DICOM format image data is available electronically f or review and comparison. FINDINGS: Sagittal and coronal reformats are provided. These demonstrate adequate alignment of the cervical benton tebral bodies. No acute compression fracture is seen. No destructive lesion is identified. Axial imaging through the disc spaces is provided. These demonstrate scattered, minimal degenerative changes. There is no significant neural foraminal stenosis or spinal stenosis. The paraspinous soft tissues are unremarkable. There are advanced COPD changes throughout the pulmonary parenchyma. CONCLUSION: 1. Mild degenerative changes of the thoracic spine. No acute abnormality. 2. COPD changes within the pulmonary parenchyma. Paul Mckeon MD on July 01, 2017 at 13:44 Board Certified Radiologist. This report was verified electronically.
[2017-07-01 14:25] VITALS: BP 148/75; PULSE 78; RESP 16; O2SAT 100
--- NOTE | 2017-07-01 16:22 | EKG ---
Date Performed: 07/01/2017 Time Performed: 12:04:56 PTAGE: 77 years EKG: Sinus rhythm LEFT ANTERIOR FASCICULAR BLOCK MODERATE VOLTAGE CRITERIA FOR LVH, CONSIDER NORMAL VARIANT POSSIBLE A NTERIOR MYOCARDIAL INFARCTION ABNORMAL ECG INTERPRETATION BASED ON A DEFAULT AGE OF 40 YEARS Compared to the PREVIOUS TRACING , no significant change DOCTOR: Tho Ferrell Interpretating Date/Time 07/01/2017 16:20:15
== END 2017-07-01 15:34 | disposition home or self-care (01) ==
LOC: PHED 11:54
DX: M54.6 Pain in thoracic spine (principal); F41.9 Anxiety disorder, unspecified; E78.5 Hyperlipidemia, unspecified; Z86.73 Personal history of transient ischemic attack (TIA), and cerebral infarction without residual deficits; E11.9 Type 2 diabetes mellitus without complications; I25.2 Old myocardial infarction
CPT/HCPCS: 71010; 72128; 80053; 84484; 85025; 93005

== ENCOUNTER 2017-08-03 10:44 | Emergency (ER) | payer MEDICARE, OTHER ==
[~2017-08-03] VITALS: Ht 165.1 cm; Wt 60.0 kg
[2017-08-03 10:53] VITALS: BP 140/67; PULSE 77; RESP 16; TEMP 98.1; O2SAT 97
--- NOTE | 2017-08-03 11:04 | PD ---
HPI Chief Complaint: Diabetic Time Seen by Provider: 11:01 Travel History International Travel<30 days: No Contact w/Intl Traveler<30days: No Traveled to known affect area: No History of Present Illness HPI 77-year-old female came to the emergency room with history of feeling shaky, blurred vision and feeling like she cannot think right this morning when she woke up. Usually she feels like this when her sugar goes low. She tried eating 6 grapes which made her feel little bit better but she was concerned and went to her neighbor's house who brought her to the emergency room. Currently patient appears to be fairly anxious and also in somewhat disorganized thought. She appears to be disheveled. She says that her sugar yesterday was 245. She does not have a primary care currently since the one she had close down. She does not take any diabetes medications. Vital signs were relatively stable. She has been trying to answer questions but once again and somewhat disorganized manner. There is currently no family member in the room with her. She lives alone in her house. Patient is also complaining of backache and muscle cramps. PFSH Past Medical History Narrative Medical List of her past medical, surgical, social and family history is reviewed from the nursing note. Hx Anticoagulant Therapy: No Anxiety: Yes Cardiovascular Problems: Yes (hx of [place]) High Cholesterol: Yes Cerebrovascular Accident: Yes (CVA) Diabetes: Yes Diminished Hearing: Yes ([place]) Immunizations Current: Yes Myocardial Infarction: Yes (x1 at age 36 ?) ?: Not Menopausal: Yes Dilation and Curettage (D&C): Yes Past Surgical History Hysterectomy: Yes (Partial 1979.) Tonsillectomy: Yes Other Surgery: Yes (ANAL FISSURE) Social History Alcohol Use: No Tobacco Use: No Substance Use: No Allergies-Medications (Allergen,Severity, Reaction): Coded Allergies: Sulfa (Sulfonamide Antibiotics) (Unverified Allergy, Severe, WAS A CHILD WHEN HAPPENED AND NOT SURE WHAT HAPPENED, 08/12/17) Comments List of her allergies reviewed from the nursing note. Reported Meds & Prescriptions Reported Meds & Active Scripts Active Lidocaine Patch 12 HR (Lidocaine) 5 % Patch 1 Patch TOPICAL DAILY PRN Remove patch after 12 hours Reported Acetaminophen 325 Mg Capsule .XX Ondansetron (Ondansetron HCl) 8 Mg Tab 4 Mg PO PRN Narrative Medication List of her home medications reviewed from the nursing note. Review of Systems Except as stated in HPI: all other systems reviewed are Neg Eyes: Positive: Blurred Vision Musculoskeletal: Positive: Pain Physical Exam Narrative GENERAL: Awake, alert, disheveled, anxious, disorganized thoughts SKIN: Focused skin assessment warm/dry. HEAD: Atraumatic. Normocephalic. EYES: Pupils equal and round. No scleral icterus. Bilateral conjunctival injection ENT: No nasal bleeding or discharge. Mucous membranes pink and moist. NECK: Trachea midline. No JVD. CARDIOVASCULAR: Regular rate and rhythm. No murmur appreciated. RESPIRATORY: No accessory muscle use. Clear to auscultation. Breath sounds equal bilaterally. GASTROINTESTINAL: Abdomen soft, non-tender, nondistended. Hepatic and splenic margins not palpable. MUSCULOSKELETAL: No obvious deformities. No clubbing. No cyanosis. No edema. NEUROLOGICAL: Awake and alert. No obvious cranial nerve deficits. Motor grossly within normal limits. Normal speech. Essential tremors PSYCHIATRIC: Disorganized thought Data Data Last Documented VS Orders Orders Electrocardiogram (08/03/17 11:12) Ammonia (08/03/17 11:12) Complete Blood Count With Diff (08/03/17 11:12) Comprehensive Metabolic Panel (08/03/17 11:12) Prothrombin Time / Inr (Pt) (08/03/17 11:12) Troponin I (08/03/17 11:12) Thyroid Stimulating Hormone (08/03/17 11:12) Urinalysis - C+S If Indicated (08/03/17 11:12) Lactic Acid Sepsis Protocol (08/03/17 11:12) Blood Culture (08/03/17 11:12) Chest, Single Ap (08/03/17 11:12) Ct Brain W/O Iv Contrast(Rout) (08/03/17 11:12) Blood Glucose (08/03/17 11:12) Ecg Monitoring (08/03/17 11:12) Iv Access Insert/Monitor (08/03/17 11:12) Oximetry (08/03/17 11:12) Sodium Chloride 0.9% Flush (Ns Flush) (08/03/17 11:15) Drug Screen, Random Urine (08/03/17 11:12) Alcohol (Ethanol) (08/03/17 11:12) Sodium Chlorid 0.9% 500 Ml Inj (Ns 500 M (08/03/17 11:15) Creatine Kinase (Cpk) (08/03/17 11:23) Ed Discharge Order (08/03/17 13:41) Labs Laboratory Tests Test 08/03/17 11:36 08/03/17 11:37 08/03/17 11:54 Lactic Acid Level 0.7 mmol/L Ammonia 27 MCMOL/L White Blood Count 7.9 TH/MM3 Red Blood Count 4.63 MIL/MM3 Hemoglobin 13.2 GM/DL Hematocrit 39.7 % Mean Corpuscular Volume 85.6 FL Mean Corpuscular Hemoglobin 28.5 PG Mean Corpuscular Hemoglobin Concent 33.3 % Red Cell Distribution Width 12.5 % Platelet Count 256 TH/MM3 Mean Platelet Volume 7.2 FL Neutrophils (%) (Auto) 74.4 % Lymphocytes (%) (Auto) 17.7 % Monocytes (%) (Auto) 6.5 % Eosinophils (%) (Auto) 1.0 % Basophils (%) (Auto) 0.4 % Neutrophils # (Auto) 5.9 TH/MM3 Lymphocytes # (Auto) 1.4 TH/MM3 Monocytes # (Auto) 0.5 TH/MM3 Eosinophils # (Auto) 0.1 TH/MM3 Basophils # (Auto) 0.0 TH/MM3 CBC Comment DIFF FINAL Differential Comment Prothrombin Time 10.5 SEC Prothromb Time International Ratio 1.0 RATIO Blood Urea Nitrogen 23 MG/DL Creatinine 0.99 MG/DL Random Glucose 119 MG/DL Total Protein 7.2 GM/DL Albumin 3.7 GM/DL Calcium Level 8.8 MG/DL Alkaline Phosphatase 138 U/L Aspartate Amino Transf (AST/SGOT) 19 U/L Alanine Aminotransferase (ALT/SGPT) 27 U/L Total Bilirubin 0.3 MG/DL Sodium Level 139 MEQ/L Potassium Level 3.9 MEQ/L Chloride Level 104 MEQ/L Carbon Dioxide Level 25.9 MEQ/L Anion Gap 9 MEQ/L Estimat Glomerular Filtration Rate 54 ML/MIN Total Creatine Kinase 57 U/L Troponin I LESS THAN 0.02 NG/ML Thyroid Stimulating Hormone 3rd Gen 2.650 uIU/ML Ethyl Alcohol Level LESS THAN 3 MG/DL Urine Collection Type CLEAN CATCH Urine Color YELLOW Urine Turbidity CLEAR Urine pH 5.5 Urine Specific [place] 1.026 Urine Protein NEG mg/dL Urine Glucose (UA) NEG mg/dL Urine Ketones NEG mg/dL Urine Occult Blood NEG Urine Nitrite NEG Urine Bilirubin NEG Urine Leukocyte Esterase SMALL Urine RBC 0-3 /hpf Urine WBC 3-5 /hpf Urine Squamous Epithelial Cells 0-5 /hpf Microscopic Urinalysis Comment CULT NOT INDICATED Urine Collection Time 11:54 Urine Opiates Screen NEG Urine Barbiturates Screen NEG Urine Amphetamines Screen NEG Urine Benzodiazepines Screen NEG Urine Cocaine Screen NEG Urine Cannabinoids Screen NEG MDM Medical Decision Making Medical Screen Exam Complete: Yes Emergency Medical Condition: Yes Medical Record Reviewed: Yes Interpretation(s) Twelve-lead EKG was reviewed by me. Normal sinus rhythm, left axis deviation, poor R-wave progression. Heart rate of 71 bpm. Differential Diagnosis Metabolic encephalopathy, dehydration, UTI, stroke Narrative Course 11:49 AM awaiting for the blood test results and the CAT scan to be done and resulted. Patient is getting 500 cc of fluid bolus. Her blood glucose was 131. 12:49 PM all the blood test results, CAT scan and x-ray reports are back. They' re all within acceptable limits. I went and spoke with the patient and she says she has an appointment with a new provider on the of this month. Meanwhile she also told me that she has 4 children but nobody would help her. Apparently one of them took her car away and right now she has no means to drive herself to the grocery store or go anywhere else. I've asked the nurse to call family and find out if patient has any help at home. Otherwise she may be an unsafe disposition. 1:37 PM please refer to the nurse's note regarding the discussion he had with patient's daughter Carrol. As far as I understand the family has been trying to help her. Patient has been calling and crying multiple times in a day that she is having a heart attack or some other medical condition. Family has also tried to get home health care which patient has refused. At this point family does not know how else to help. Patient is adamant that her children have been very unhelpful with her situation. It seems more off family dynamic issue at this point with patient being non-receptive to help. There is some adjustment disorder with her living alone and poor coping mechanisms with that. She would need to follow up with her primary care and hopefully some resolution can happen. I'm comfortable discharging her home at this point. Procedures EKG Prior to Arrival: No Diagnosis Primary Impression: Adjustment disorder Qualified Codes: F43.23 - Adjustment disorder with mixed anxiety and depressed mood Additional Impressions: Anxiety Ineffective coping possible dementia Referrals: Primary Care Physician 1 week Additional Instructions: Please return to the ER if the condition worsens or any other new concerns. Follow-up with primary care. Med/Other Pt SpecificInfo: No Change to Meds Disposition: 01 DISCHARGE HOME Condition: Stable Venkatesh Valero MD Aug 03, 2017 11:04
[2017-08-03] MEDS ORDERED: SODIUM CHLORID 0.9% 500 ML INJ 500 ML IV ONE (11:15)
[2017-08-03] MEDS ORDERED: SODIUM CHLORIDE 0.9% FLUSH 5 ML FLUSH IV FLUSH PRN (11:15)
[2017-08-03 11:41] VITALS: O2SAT 97
[2017-08-03 11:47] LABS: AUTOMATED NEUTROPHIL # 5.9 TH/MM3 (1.8-7.7); BASOPHIL % 0.4 % (0.0-2.0); EOSINOPHIL # 0.1 TH/MM3 (0-0.4); HEMATOCRIT 39.7 % (35.0-46.0); HEMO FLAGS DIFF FINAL; LYMPH % 17.7 % (9.0-44.0); LYMPHOCYTE # 1.4 TH/MM3 (1.0-4.8); MEAN CELL VOLUME 85.6 FL (80.0-100.0); MEAN CORPUSCULAR HEMOGLOBIN 28.5 PG (27.0-34.0); MEAN CORPUSCULAR HGB CONC 33.3 % (32.0-36.0); MONO % 6.5 % (0.0-8.0); NEUT % 74.4 % (16.0-70.0); PLATELET COUNT 256 TH/MM3 (150-450); RED BLOOD COUNT 4.63 MIL/MM3 (4.00-5.30); RED CELL DISTRIBUTION WIDTH 12.5 % (11.6-17.2); WHITE BLOOD COUNT 7.9 TH/MM3 (4.0-11.0)
--- NOTE | 2017-08-03 11:49 | RADRPT ---
EXAM DATE/TIME: 08/03/2017 11:22 [facility] COMPARISON: CHEST SINGLE AP, July 01, 2017, 12:45. INDICATIONS : Weakness, cough MEDICAL HISTORY : Myocardial infarction. Stroke. Diabetes mellitus type II. SURGICAL HISTORY : None. ENCOUNTER: Initial ACUITY: 1 day PAIN SCORE: 0/10 LOCATION: Bilateral chest FINDINGS: A single view of the chest demonstrates the lungs to be symmetrically aerated without evidence of mas s, infiltrate or effusion. Mild generalized interstitial prominence remains evident. The cardiomedias tinal contours are unremarkable. Osseous structures are intact. CONCLUSION: 1. Interstitial lung disease which appears chronic. 2. Otherwise stable chest without evidence of consolidating airspace disease, mass densities, effusio ns or significant congestion. Attila Trejo MD on August 03, 2017 at 11:47 Board Certified Radiologist. This report was verified electronically.
[2017-08-03 11:59] LABS: CHLORIDE 104 MEQ/L (98-107); POTASSIUM 3.9 MEQ/L (3.5-5.1); SODIUM (NA) 139 MEQ/L (136-145)
[2017-08-03 12:02] LABS: ANION GAP 9 MEQ/L (5-15); BICARBONATE 25.9 MEQ/L (21.0-32.0)
[2017-08-03 12:03] LABS: BLOOD UREA NITROGEN 23 MG/DL (7-18); PROTHROMBIN TIME - PATIENT 10.5 SEC (9.8-11.6)
[2017-08-03 12:05] LABS: BLOOD, URINE NEG (NEG); GLUCOSE,URINE NEG (NEG); KETONE, URINE NEG (NEG); NITRITE,URINE NEG (NEG); PH, URINE 5.5 (5.0-8.5)
[2017-08-03 12:05] LABS: ALT (GPT) 27 U/L (10-53); AST (GOT) 19 U/L (15-37); GLOMERULAR FILTRATION RATE 54 ML/MIN (>89)
[2017-08-03 12:07] LABS: TOTAL BILIRUBIN ADULT 0.3 MG/DL (0.2-1.0)
[2017-08-03 12:08] LABS: ALCOHOL LESS THAN 3 MG/DL (0-5); ALKALINE PHOSPHATASE 138 U/L (45-117)
[2017-08-03 12:15] LABS: METHOD OF COLLECTION CLEAN CATCH; RBC, URINE 0-3 /hpf (0-3); URINE COLOR YELLOW (YELLW/STRAW)
[2017-08-03 12:16] LABS: COMMENT (UR) CULT NOT INDICATED; CULTURE IF INDICATED CULT NOT INDICATED; SQUAMOUS EPITHELIAL CELL URINE 0-5 /hpf (0-5)
--- NOTE | 2017-08-03 12:30 | RADRPT ---
EXAM DATE/TIME: 08/03/2017 12:11 [facility] COMPARISON: CT BRAIN W/O CONTRAST, January 12, 2017, 15:17. INDICATIONS : Hyperglycemic and shaky with altered mental status. RADIATION DOSE: 58.84 CTDIvol (mGy) MEDICAL HISTORY : Cerebrovascular disease. Myocardial infarction. Hypertension. SURGICAL HISTORY : Hysterectomy. ENCOUNTER: Initial ACUITY: 2 days PAIN SCALE: 0/10 LOCATION: cranial TECHNIQUE: Multiple contiguous axial images were obtained of the head. Using automated exposure control and adj ustment of the mA and/or kV according to patient size, radiation dose was kept as low as reasonably a chievable to obtain optimal diagnostic quality images. DICOM format image data is available electro nically for review and comparison. FINDINGS: CEREBRUM: The ventricles are normal for age. Minimal, stable periventricular small vessel ischemic demyelinati on, predominantly around the frontal horns of the lateral ventricles. No evidence of midline shift, m ass lesion, hemorrhage or acute infarction. No extra-axial fluid collections are seen. POSTERIOR FOSSA: The cerebellum and brainstem are intact. The 4th ventricle is midline. The cerebellopontine angle i s unremarkable. EXTRACRANIAL: The visualized portion of the orbits is intact. SKULL: The calvaria is intact. No evidence of skull fracture. CONCLUSION: 1. Minimal but stable periventricular small vessel ischemic demyelination, predominantly around the f rontal horns of the lateral ventricles. 2. Nothing acute. Krish Goins MD on August 03, 2017 at 12:27 Board Certified Radiologist. This report was verified electronically.
--- NOTE | 2017-08-04 19:10 | EKG ---
Date Performed: 08/03/2017 Time Performed: 11:28:49 PTAGE: 77 years EKG: Sinus rhythm LEFT ANTERIOR FASCICULAR BLOCK MINIMAL VOLTAGE CRITERIA FOR LVH, CONSIDER NORMAL VARIANT POSSIBLE AN TERIOR MYOCARDIAL INFARCTION ABNORMAL ECG Since PREVIOUS TRACING , no significant change noted PREVIOUS TRACIN07/01/2017 12.04 DOCTOR: Usman Belcher Interpretating Date/Time 08/04/2017 19:08:31
[2017-08-12] MEDS ORDERED: ONDA8TAB7 PO (13:55)
[2017-08-12] MEDS ORDERED: ACET325C (13:55)
== END 2017-08-03 14:43 | disposition home or self-care (01) ==
LOC: PHED 10:44
DX: F43.23 Adjustment disorder with mixed anxiety and depressed mood (principal); I25.2 Old myocardial infarction; R05 Cough; R53.1 Weakness
CPT/HCPCS: 70450; 71010; 80053; 80307; 81001; 82140; 82550; 83605; 84443; 84484; 85025; 85610; 87040; 93005; 96360; 99285; J7040

== ENCOUNTER 2017-08-04 08:58 | Emergency (ER) | payer MEDICARE, OTHER ==
[2017-08-04 09:05] VITALS: BP 131/62; PULSE 73; RESP 15; TEMP 98.1; O2SAT 98
--- NOTE | 2017-08-04 09:40 | PD ---
HPI Chief Complaint: GI Complaint Time Seen by Provider: 09:20 Travel History International Travel<30 days: No Contact w/Intl Traveler<30days: No Traveled to known affect area: No History of Present Illness HPI This 77-year-old female has complaint of midthoracic back pain and a tremor of the right arm. She has been having the back pain for about the area and she was seen here in June and had a CT scan of the thoracic spine which was normal. She also had a chest x-ray which showed some changes consistent with COPD. She's also had some tremor of the right hand which has been fairly persistent. She drinks 2 cups of coffee daily. She does not take any medications. She has some children that live in town. They have tried to get her to go to assisted living but she has refused. PFSH Past Medical History Hx Anticoagulant Therapy: No Anxiety: Yes Cardiovascular Problems: Yes (hx of [place]) High Cholesterol: Yes Cerebrovascular Accident: Yes (CVA) Diabetes: Yes Patient Takes Glucophage: No Diminished Hearing: Yes ([place]) Hypertension: Yes Immunizations Current: Yes Myocardial Infarction: Yes (x1 at age 36 ?) Menopausal: Yes Dilation and Curettage (D&C): Yes Past Surgical History Hysterectomy: Yes (Partial 1979.) Tonsillectomy: Yes Other Surgery: Yes (ANAL FISSURE) Social History Alcohol Use: No Tobacco Use: No Substance Use: No Allergies-Medications (Allergen,Severity, Reaction): Coded Allergies: Sulfa (Sulfonamide Antibiotics) (Unverified Allergy, Severe, WAS A CHILD WHEN HAPPENED AND NOT SURE WHAT HAPPENED, 08/04/17) Reported Meds & Prescriptions Reported Meds & Active Scripts Active No Active Prescriptions or Reported Medications Review of Systems General / Constitutional: No: Fever, Chills Eyes: No: Diploplia, Blurred Vision HENT: No: Headaches, Neck Pain Cardiovascular: No: Chest Pain or Discomfort, Palpitations Respiratory: No: Cough Gastrointestinal: No: Vomiting, Diarrhea Musculoskeletal: Positive: Pain, No: Myalgias Skin: No Rash, No Itching Neurologic: Positive: Tremor Hematologic/Lymphatic: No: Easy Bruising Physical Exam Narrative GENERAL: Well-developed female. SKIN: Focused skin assessment warm/dry. HEAD: Atraumatic. Normocephalic. EYES: Pupils equal and round. No scleral icterus. No injection or drainage. ENT: No nasal bleeding or discharge. Mucous membranes pink and moist. NECK: Trachea midline. No JVD. CARDIOVASCULAR: Regular rate and rhythm. No murmur appreciated. RESPIRATORY: No accessory muscle use. Clear to auscultation. Breath sounds equal bilaterally. GASTROINTESTINAL: Abdomen soft, non-tender, nondistended. Hepatic and splenic margins not palpable. MUSCULOSKELETAL: No obvious deformities. No clubbing. No cyanosis. No edema. Ears and tenderness of the midthoracic spine on the right NEUROLOGICAL: Awake and alert. No obvious cranial nerve deficits. Motor grossly within normal limits. Normal speech. There is a fairly persistent tremor of the right hand PSYCHIATRIC: Patient does appear quite anxious Data Data Last Documented VS Vital Signs Date Time Temp Pulse Resp B/P (MAP) Pulse Ox O2 Delivery O2 Flow Rate FiO2 08/04/17 09:05 98.1 73 15 131/62 (85) 98 MDM Medical Decision Making Medical Screen Exam Complete: Yes Emergency Medical Condition: Yes Medical Record Reviewed: Yes Differential Diagnosis Differential includes nonspecific back pain, tremor, anxiety Narrative Course Patient has had a recent CT of the thoracic spine as well as a chest x-ray which did not reveal etiology for pain. She appears to move well. He does have tremor of the right arm which has been ongoing for at least 2 weeks. I don 't think any intervention is warranted at this time. She is stable for discharge I will recommend that she take Tylenol for her back pain Diagnosis Primary Impression: Back pain Qualified Codes: M54.6 - Pain in thoracic spine; G89.29 - Other chronic pain Additional Impression: Tremor Additional Instructions: Take Tylenol as needed for pain Scripts No Active Prescriptions or Reported Meds Disposition: DISCHARGE HOME Condition: Stable Ryder Carney MD Aug 04, 2017 09:40
[2017-08-04] MEDS ORDERED: ACETAMINOPHEN 325 MG TAB PO ONE (09:45)
[2017-08-05] MEDS ORDERED: LIDO1PAD52 TOPICAL (09:48)
[2017-08-12] MEDS ORDERED: ACET325C (13:55)
[2017-08-12] MEDS ORDERED: ONDA8TAB7 PO (13:55)
== END 2017-08-04 10:07 | disposition home or self-care (01) ==
LOC: PHED 08:58
DX: M54.6 Pain in thoracic spine (principal); G89.29 Other chronic pain; R25.1 Tremor, unspecified; I25.2 Old myocardial infarction; I10 Essential (primary) hypertension; E11.9 Type 2 diabetes mellitus without complications; Z86.73 Personal history of transient ischemic attack (TIA), and cerebral infarction without residual deficits
CPT/HCPCS: 99282

== ENCOUNTER 2017-08-05 08:41 | Emergency (ER) | payer MEDICARE, OTHER ==
[~2017-08-05] VITALS: Ht 165.1 cm; Wt 59.5 kg
[2017-08-05 08:57] VITALS: BP 148/67; PULSE 75; RESP 16; TEMP 97.8; O2SAT 97
--- NOTE | 2017-08-05 09:38 | PD ---
HPI Chief Complaint: Pain: Acute or Chronic Time Seen by Provider: 09:31 Travel History International Travel<30 days: No Contact w/Intl Traveler<30days: No Traveled to known affect area: No History of Present Illness HPI This is a 77-year-old female who presents complaining of mid back pain. This is been going on for the past few weeks. She was seen here in July [address] of the thoracic spine revealing no acute abnormalities. The patient has been seen here for the past 3 days for evaluation. She reports that her pain was worse this morning after doing some work around the house. There is concern from previous notes that the patient is somewhat disheveled and disorganized in her thought process. She lives alone but she has daughters that come and check on her. The patient reports that her daughter and he is setting up home health care at her house starting in 4 days. She also has a new primary care practitioner, Sybil Schulte, whom she has her first appointment with on August 11. She has no other complaints at this time. PFSH Past Medical History Hx Anticoagulant Therapy: No Anxiety: Yes Cardiovascular Problems: Yes (hx of [place]) High Cholesterol: Yes Cerebrovascular Accident: Yes (CVA) Diabetes: Yes Patient Takes Glucophage: No Diminished Hearing: Yes ([place]) Hypertension: Yes Immunizations Current: Yes Myocardial Infarction: Yes (x1 at age 36 ?) ?: Not Menopausal: Yes Dilation and Curettage (D&C): Yes Past Surgical History Hysterectomy: Yes (Partial 1979.) Tonsillectomy: Yes Other Surgery: Yes (ANAL FISSURE) Social History Alcohol Use: No Tobacco Use: No Substance Use: No Allergies-Medications (Allergen,Severity, Reaction): Coded Allergies: Sulfa (Sulfonamide Antibiotics) (Unverified Allergy, Severe, WAS A CHILD WHEN HAPPENED AND NOT SURE WHAT HAPPENED, 08/05/17) Reported Meds & Prescriptions Reported Meds & Active Scripts Active Lidocaine Patch 12 HR (Lidocaine) 5 % Patch 1 Patch TOPICAL DAILY PRN Remove patch after 12 hours Review of Systems Except as stated in HPI: all other systems reviewed are Neg Physical Exam Narrative GENERAL: Well-developed well-nourished female who appears anxious. She is alert and oriented to person, place, time. SKIN: Warm and dry. HEAD: Atraumatic. Normocephalic. EYES: Pupils equal and round. No scleral icterus. No injection or drainage. ENT: No nasal bleeding or discharge. Mucous membranes pink and moist. NECK: Trachea midline. No JVD. CARDIOVASCULAR: Regular rate and rhythm. No murmur appreciated. RESPIRATORY: No accessory muscle use. Clear to auscultation. Breath sounds equal bilaterally. GASTROINTESTINAL: Abdomen soft, non-tender, nondistended. Hepatic and splenic margins not palpable. MUSCULOSKELETAL: No obvious deformities. There is no tenderness to palpation of the back or paravertebral musculature. In fact, palpation reduces her pain. NEUROLOGICAL: Awake and alert. No obvious cranial nerve deficits. Motor grossly within normal limits. Normal speech. PSYCHIATRIC: Affect is slightly flat. Insight and judgment appear reasonable. Data Data Last Documented VS Vital Signs Date Time Temp Pulse Resp B/P (MAP) Pulse Ox O2 Delivery O2 Flow Rate FiO2 08/05/17 08:57 97.8 75 16 148/67 (94) 97 MDM Medical Decision Making Medical Screen Exam Complete: Yes Emergency Medical Condition: Yes Medical Record Reviewed: Yes Differential Diagnosis Mechanical back pain, compression fracture, renal stone, AAA Narrative Course I reviewed the patient's recent workups over the past several days. She has had numerous laboratory tests as well as a CT the brain, chest x-ray 2 days ago which were all unremarkable. I don't think she would benefit from additional lab work or imaging studies at this time. Her pain seems musculoskeletal. She is somewhat disorganized in her thought pattern however she does not meet miguel act criteria. This patient would certainly benefit from home health care or eventual placement with his assisted-living facility. She does report that she does have home health care organized to start coming to her house in 4 days. My attending, who evaluated the patient yesterday as well, agrees with plan of care. At this point in time the plan will be to discharge the patient with a short course of Lidoderm patches and have her follow up with her primary care next week as scheduled. She is stable for discharge. Diagnosis Primary Impression: Back pain Additional Instructions: [id number] Tylenol as needed per dosing instructions on the bottle. Lidoderm patches. Follow-up with primary care. Return for any emergent medical conditions. Med/Other Pt SpecificInfo: Prescription(s) given Scripts Lidocaine Patch 12 HR (Lidocaine Patch 12 HR) 5 % Patch 1 PATCH TOPICAL DAILY Y for PAIN, #1 BOX 1 Refill Remove patch after 12 hours Prov: Ryder Carney MD 08/05/17 Disposition: 01 DISCHARGE HOME Condition: Stable Felipe Bonilla Aug 05, 2017 09:38
[2017-08-05] MEDS ORDERED: LIDO1PAD52 TOPICAL (09:48)
[2017-08-12] MEDS ORDERED: ACET325C (13:55)
[2017-08-12] MEDS ORDERED: ONDA8TAB7 PO (13:55)
== END 2017-08-05 10:10 | disposition home or self-care (01) ==
LOC: PHEFT 08:41
DX: M54.89 Other dorsalgia (principal)
CPT/HCPCS: 99282

== ENCOUNTER 2017-09-03 15:12 | Emergency (ER) | payer MEDICARE, OTHER ==
[~2017-09-03] VITALS: Ht 165.1 cm; Wt 60.0 kg
[~2017-09-03 15:12] MED LIST changes: +ACET325C PO; +LIDO1PAD52 TOPICAL; -MACR100C2 PO; +ONDA8TAB7 PO
[2017-09-03 15:35] VITALS: BP 182/81; PULSE 70; RESP 18; TEMP 98; O2SAT 99
--- NOTE | 2017-09-03 16:08 | PD ---
HPI Chief Complaint: Anxiety Time Seen by Provider: 15:39 Travel History International Travel<30 days: No Contact w/Intl Traveler<30days: No Traveled to known affect area: No History of Present Illness HPI Patient is a 77 year old female who presents to the ER with complaints of anxiety reaction. Patient reports that her children live far away from her and sometimes they forget about her. Reports that one [place], her children forgot to invite her over for the holidays. Patient reports that she is anxious and does not like to be alone. Patient reports "I just wanted to see my children." Patient reports that she called EMS as she was anxious and felt lonely. Reports that after her children were notified, patient felt relieved as her children are on the way to visit her. Patient reports that she is not suicidal or homicidal. Patient denies chest pain or shortness of breath. Patient does not want to be seen by a mental health screener. She request to be discharged at this time as her children are on their way to see her. PFSH Past Medical History Hx Anticoagulant Therapy: No Anxiety: Yes Cardiovascular Problems: Yes (hx of [place]) High Cholesterol: Yes Cerebrovascular Accident: Yes (CVA) Diabetes: Yes Diminished Hearing: Yes ([place]) Hypertension: Yes Immunizations Current: Yes Myocardial Infarction: Yes (x1 at age 36 ?) Menopausal: Yes Dilation and Curettage (D&C): Yes Past Surgical History Hysterectomy: Yes (Partial 1979.) Tonsillectomy: Yes Other Surgery: Yes (ANAL FISSURE) Social History Alcohol Use: No Tobacco Use: No Substance Use: No Allergies-Medications (Allergen,Severity, Reaction): Coded Allergies: Sulfa (Sulfonamide Antibiotics) (Unverified Allergy, Severe, WAS A CHILD WHEN HAPPENED AND NOT SURE WHAT HAPPENED, 08/12/17) Reported Meds & Prescriptions Reported Meds & Active Scripts Active Lidocaine Patch 12 HR (Lidocaine) 5 % Patch 1 Patch TOPICAL DAILY PRN Remove patch after 12 hours Reported Acetaminophen 325 Mg Capsule .XX Ondansetron (Ondansetron HCl) 8 Mg Tab 4 Mg PO PRN Review of Systems General / Constitutional: No: Fever, Chills Eyes: No: Visual changes HENT: No: Headaches Cardiovascular: No: Chest Pain or Discomfort, Palpitations, Irregular Rhythm, Tachycardia Respiratory: No: Cough, Shortness of Breath Gastrointestinal: No: Abdominal Pain Genitourinary: No: Dysuria Musculoskeletal: No: Pain Skin: No Rash Neurologic: No: Weakness Psychiatric: Positive: Anxiety, No: Depression, Suicidal Ideations, Homicidal Ideation Endocrine: No: Polydipsia Hematologic/Lymphatic: No: Easy Bruising Physical Exam Narrative GENERAL: NAD SKIN: Focused skin assessment warm/dry. HEAD: Atraumatic. Normocephalic. EYES: Pupils equal and round. No scleral icterus. No injection or drainage. ENT: No nasal bleeding or discharge. Mucous membranes pink and moist. NECK: Trachea midline. No JVD. CARDIOVASCULAR: Regular rate and rhythm. No murmur appreciated. RESPIRATORY: No accessory muscle use. Clear to auscultation. Breath sounds equal bilaterally. GASTROINTESTINAL: Abdomen soft, non-tender, nondistended. Hepatic and splenic margins not palpable. MUSCULOSKELETAL: No obvious deformities. No clubbing. No cyanosis. No edema. NEUROLOGICAL: Awake and alert. No obvious cranial nerve deficits. Motor grossly within normal limits. Normal speech. PSYCHIATRIC: Anxious mood and affect, Denies si/hi Data Data Last Documented VS Vital Signs Date Time Temp Pulse Resp B/P (MAP) Pulse Ox O2 Delivery O2 Flow Rate FiO2 09/03/17 15:39 70 18 09/03/17 15:35 98.0 182/81 (114) 99 [facility] Medical Decision Making Medical Screen Exam Complete: Yes Emergency Medical Condition: Yes Medical Record Reviewed: Yes Interpretation(s) Vital Signs Date Time Temp Pulse Resp B/P (MAP) Pulse Ox O2 Delivery O2 Flow Rate FiO2 09/03/17 15:39 70 18 09/03/17 15:35 98.0 70 18 182/81 (114) 99 Differential Diagnosis anxiety reaction Narrative Course Patient is a 77 year old female who presents to the ER with complaint of anxiety reaction. Patient is anxious as her family tends to forget her and she feels alone as her children moved far away from her and sometimes they forget about her. Reports that she felt lonely today so called EMS. Patient at this time reports that she is feeling much better. Patient request to be discharged to home as she is feeling much better and her children are on the way to see her. Patient with no complaints at this time. VSS. Patient denies si/hi. Patient safe to be discharged to home with outpatient followup Diagnosis Primary Impression: Anxiety Patient Instructions: General Instructions Additional Instructions: Please follow up with your primary care doctor in 2-3 days Return to the ER if symptoms worsen or progress Return to the ER as needed Disposition: 01 DISCHARGE HOME Condition: Rita Vicente DO Sep 03, 2017 16:08
[2017-09-03] MEDS ORDERED: LORazepam 0.5 MG TAB PO ONE (16:15)
[2017-09-11] MEDS ORDERED: DULO1CAP2 PO (15:19)
== END 2017-09-03 17:14 | disposition home or self-care (01) ==
LOC: NEPD 15:12
DX: F41.9 Anxiety disorder, unspecified (principal); E78.00 Pure hypercholesterolemia, unspecified; E11.9 Type 2 diabetes mellitus without complications; I10 Essential (primary) hypertension; I25.2 Old myocardial infarction; Z86.73 Personal history of transient ischemic attack (TIA), and cerebral infarction without residual deficits; Z79.899 Other long term (current) drug therapy; Z88.2 Allergy status to sulfonamides
CPT/HCPCS: 99283

== ENCOUNTER 2017-09-04 09:19 | Emergency (ER) | payer MEDICARE, OTHER ==
[~2017-09-04] VITALS: Ht 165.1 cm; Wt 60.0 kg
[2017-09-04 09:22] VITALS: BP 167/96; PULSE 88; RESP 18; TEMP 97.4; O2SAT 100
--- NOTE | 2017-09-04 10:26 | PD ---
HPI Chief Complaint: Back/ Neck Pain or Injury Time Seen by Provider: 09:39 Travel History International Travel<30 days: No Contact w/Intl Traveler<30days: No Traveled to known affect area: No History of Present Illness HPI Patient comes back to the emergency department complaining of continued thoracic back pain ongoing for at least 4 months. Patient denies any fevers, trauma, change in bowel or bladder, chest pain, shortness of breath, neck pain, numbness or tingling anywhere, or weakness. Patient reports she's been taking [id number] Tylenol for symptomatic relief but continues to have the pain. Patient states that she was given a prescription for some type of patch previously that seemed to help however she is unable to afford them. Patient repeatedly talks about how she feels alone and that her family does not time for her because they're busy with work, but reports that she is visited by her son every weekend and talks to her family regularly. PFSH Past Medical History Hx Anticoagulant Therapy: No Anxiety: Yes Cardiovascular Problems: Yes (hx of [place]) High Cholesterol: Yes Cerebrovascular Accident: Yes (CVA) Diabetes: Yes ([place]) Patient Takes Glucophage: No Diminished Hearing: Yes ([place]) Hypertension: Yes Immunizations Current: Yes Myocardial Infarction: Yes (x1 at age 36 ?) ?: Not Menopausal: Yes Dilation and Curettage (D&C): Yes Past Surgical History Hysterectomy: Yes (Partial 1980) Tonsillectomy: Yes Other Surgery: Yes (ANAL FISSURE) Social History Alcohol Use: No Tobacco Use: No (NEVER) Substance Use: No Allergies-Medications (Allergen,Severity, Reaction): Coded Allergies: Sulfa (Sulfonamide Antibiotics) (Unverified Allergy, Severe, WAS A CHILD WHEN HAPPENED AND NOT SURE WHAT HAPPENED, 09/04/17) Reported Meds & Prescriptions Reported Meds & Active Scripts Active Reported Acetaminophen 325 Mg Capsule 1 Tab PO Q3HR Review of Systems Except as stated in HPI: all other systems reviewed are Neg Physical Exam Narrative GENERAL: Well-developed, well nourished, in no acute distress, and non-ill appearing. SKIN: Focused skin assessment warm and dry. HEAD: Atraumatic. Normocephalic. EYES: Pupils equal and round. EOMI. No scleral icterus. No injection or drainage. ENT: No nasal bleeding or discharge. Mucous membranes pink and moist. NECK: Trachea midline. Supple. No nuclear rigidity. CARDIOVASCULAR: Regular rate and rhythm. No murmur appreciated. Radial pulses 2+, intact, equal bilaterally. RESPIRATORY: No accessory muscle use. No respiratory distress. Clear to auscultation. Breath sounds equal bilaterally. MUSCULOSKELETAL: No obvious deformities. No clubbing. No cyanosis. No edema. Full range of motion. No tenderness or crepitus or midline thoracic spine. Patient reports tenderness to palpation bilateral paravertebral thoracic spinal muscles. Patient moving all extremities without difficulty. NEUROLOGICAL: Awake and alert. No obvious cranial nerve deficits. Motor grossly within normal limits. Normal speech. PSYCHIATRIC: Appropriate mood and affect; insight and judgment normal. Data Data Last Documented VS Vital Signs Date Time Temp Pulse Resp B/P (MAP) Pulse Ox O2 Delivery O2 Flow Rate FiO2 09/04/17 09:22 97.4 88 18 167/96 (119) 100 Orders Orders Ed Discharge Order (09/04/17 10:26) [facility] Medical Decision Making Medical Screen Exam Complete: Yes Emergency Medical Condition: No Medical Record Reviewed: Yes Differential Diagnosis Fracture, strain, musculoskeletal pain, chronic pain Narrative Course The patient presented complaining of back pain. Patient has been seen here multiple times for the same and has had CT and x-rays previously. There was no history of recent fall or trauma. There was no evidence to support genitourinary etiology. There is also no evidence to suggest vascular pathology such as AAA dissection. No fevers or other evidence to suspect infectious processes, abscess, osteomyelitis etc. The patients neurological exam is normal with normal motor and sensory. There is no saddle paresthesias reported and no bowel or bladder change. I suspect the pain is mechanical in nature. Clinical suspicion, plan of care and management was discussed with the patient. The patient was instructed to follow up with their health care provider. The patient was also instructed to return if the pain worsened, changed, or developed weakness or bowel or bladder trouble. The patient agreed with plan. I discussed patient possibly moving to a independent living facility where she would have a chance to have more interaction making her feel not as alone. Patient states she does not want to do this because she would have to sell her house and she would have 0 money to live on at that point. Patient in no obvious distress upon re-evaluation. Discussed patient with Dr. Hernandez prior to discharge, who is in agreement with plan of care and disposition. Spoke with case management who has seen the patient the past and reports there is no additional services that can provide at this time as patient is unwilling to seek placement. Any questions/concerns in reference to patient diagnosis/condition discussed and clarified prior to patient's discharge. Reinforced sheer importance of close follow up with patient's primary physician or primary care clinic. Instructed patient to return to ED immediately, if symptoms return/worsen. Patient showed understanding of above instructions. Further instructions and recommendations were detailed in discharge paperwork. Patient ambulated without difficulty out of ED at discharge. Diagnosis Primary Impression: Chronic back pain Qualified Codes: M54.6 - Pain in thoracic spine; G89.29 - Other chronic pain Referrals: Orthopaedic Surgeon Pain Management Primary Care Physician Patient Instructions: Back Pain (ED), General Instructions Additional Instructions: Follow-up with your primary care physician for possible physical therapy referral. Follow with pain management and/or orthopedics next week if pain continues. Continue using [id number] Tylenol for pain control. Follow instructions on the packaging. Follow instructions on the packaging. Return to the emergency department if symptoms get worse. Disposition: 01 DISCHARGE HOME Condition: Stable Uriel Palacios Sep 04, 2017 10:26
[2017-09-11] MEDS ORDERED: DULO1CAP2 PO (15:19)
== END 2017-09-04 10:42 | disposition home or self-care (01) ==
LOC: PHED 09:19
DX: M54.6 Pain in thoracic spine (principal); G89.29 Other chronic pain
CPT/HCPCS: 99282

== ENCOUNTER 2017-09-04 15:04 | Emergency (ER) | payer MEDICARE ==
[~2017-09-04] VITALS: Ht 165.1 cm; Wt 59.0 kg
[2017-09-04 15:09] VITALS: BP 174/84; PULSE 73; RESP 16; TEMP 97.9; O2SAT 99
[2017-09-04] MEDS ORDERED: KETOROLAC TROMETHAMINE 60 MG/2 ML (IM) VIAL IM ONE (15:30)
--- NOTE | 2017-09-04 16:00 | PD ---
HPI Chief Complaint: Back/ Neck Pain or Injury Time Seen by Provider: 15:27 Travel History International Travel<30 days: No Contact w/Intl Traveler<30days: No Traveled to known affect area: No History of Present Illness HPI Patient comes back to the emergency department complaining of continued back pain. Patient is here proximal 6 hours ago or less for the same. Patient has been seen multiple times for this. Patient reports pain has been going on for at least 4 months. Patient states that she went home and took her Tylenol as well as took a walk however she continues to have the pain. Patient denies any new symptoms. Denies anything making the pain worse. PFSH Past Medical History Hx Anticoagulant Therapy: No Anxiety: Yes Cardiovascular Problems: Yes (hx of [place]) High Cholesterol: Yes Cerebrovascular Accident: Yes (CVA) Diabetes: Yes (BORDERLINE) Patient Takes Glucophage: No Diminished Hearing: Yes (ANGO[place]) Hypertension: Yes Immunizations Current: Yes Myocardial Infarction: Yes (x1 at age 36 ?) Tetanus Vaccination: Unknown ?: Not Menopausal: Yes Dilation and Curettage (D&C): Yes Past Surgical History Hysterectomy: Yes (Partial 1980) Tonsillectomy: Yes Other Surgery: Yes (ANAL FISSURE) Social History Alcohol Use: No Tobacco Use: No (NEVER) Substance Use: No Allergies-Medications (Allergen,Severity, Reaction): Coded Allergies: Sulfa (Sulfonamide Antibiotics) (Unverified Allergy, Severe, WAS A CHILD WHEN HAPPENED AND NOT SURE WHAT HAPPENED, 09/04/17) Reported Meds & Prescriptions Reported Meds & Active Scripts Active Reported Acetaminophen 325 Mg Capsule 1 Tab PO Q3HR Review of Systems General / Constitutional: No: Fever Eyes: No: Visual changes HENT: No: Headaches Cardiovascular: No: Chest Pain or Discomfort Respiratory: No: Shortness of Breath Gastrointestinal: No: Abdominal Pain Genitourinary: No: Dysuria Musculoskeletal: Positive: Pain Skin: No Rash Neurologic: No: Weakness Psychiatric: No: Depression Endocrine: No: Polydipsia Hematologic/Lymphatic: No: Easy Bruising Physical Exam Narrative GENERAL: Well-developed, well nourished, in no acute distress, and non-ill appearing. Patient ambulating around the ER talking on her cell phone. SKIN: Focused skin assessment warm and dry. HEAD: Atraumatic. Normocephalic. EYES: Pupils equal and round. EOMI. No scleral icterus. No injection or drainage. ENT: No nasal bleeding or discharge. Mucous membranes pink and moist. NECK: Trachea midline. Supple. No nuclear rigidity. CARDIOVASCULAR: Regular rate and rhythm. No murmur appreciated. RESPIRATORY: No accessory muscle use. No respiratory distress. Clear to auscultation. Breath sounds equal bilaterally. MUSCULOSKELETAL: No obvious deformities. No clubbing. No cyanosis. No edema. Full range of motion. No tenderness crepitus or midline. Thoracic spine. Patient is bladder pain bilateral paravertebral spinal muscles of thoracic spine. NEUROLOGICAL: Awake and alert. No obvious cranial nerve deficits. Motor grossly within normal limits. Normal speech. PSYCHIATRIC: Appropriate mood and affect; insight and judgment normal. Data Data Last Documented VS Vital Signs Date Time Temp Pulse Resp B/P (MAP) Pulse Ox O2 Delivery O2 Flow Rate FiO2 09/04/17 15:09 97.9 73 16 174/84 (114) 99 Orders Orders Ketorolac Inj (Toradol Inj) (09/04/17 15:30) Ed Discharge Order (09/04/17 16:00) [facility] Medical Decision Making Medical Screen Exam Complete: Yes Emergency Medical Condition: No Medical Record Reviewed: Yes Differential Diagnosis Malingering, chronic pain, musculoskeletal pain, fracture, strain Narrative Course The patient presented complaining of chronic back pain. There was no history of recent fall or trauma. There was no evidence to support genitourinary etiology. There is also no evidence to suggest vascular pathology such as AAA dissection. No fevers or other evidence to suspect infectious processes, abscess, osteomyelitis etc. The patients neurological exam is normal with normal motor and sensory. There is no saddle paresthesias reported and no bowel or bladder incontinence or retention. I suspect the pain is mechanical in nature. Clinical suspicion, plan of care and management was discussed with the patient. The patient was instructed to follow up with their health care provider. The patient was also instructed to return if the pain worsened, changed, or developed weakness or bowel or bladder trouble. The patient agreed with plan. Patient in no obvious distress upon re-evaluation. Discussed patient with Dr. Hernandez prior to discharge, and is in agreement with plan of care and disposition. Spoke with case management, who contacted patient's family as well as DCF. Any questions/concerns in reference to patient diagnosis/ condition discussed and clarified prior to patient's discharge. Reinforced sheer importance of close follow up with patient's primary physician or primary care clinic. Instructed patient to return to ED immediately, if symptoms return/ worsen. Patient showed understanding of above instructions. Further instructions and recommendations were detailed in discharge paperwork. Patient ambulated without difficulty out of ED at discharge. Diagnosis Primary Impression: Chronic back pain greater than 3 months duration Referrals: Orthopedist Pain Management Primary Care Physician Patient Instructions: Chronic Back Pain (ED), General Instructions Additional Instructions: Follow-up with your primary care physician in one to 3 days for reevaluation. Return to the emergency department if symptoms get worse. Disposition: 01 DISCHARGE HOME Condition: Stable Uriel Palacios Sep 04, 2017 16:00
[2017-09-11] MEDS ORDERED: DULO1CAP2 PO (15:19)
== END 2017-09-04 16:15 | disposition home or self-care (01) ==
LOC: PHEFT 15:04
DX: M54.9 Dorsalgia, unspecified (principal); G89.29 Other chronic pain
CPT/HCPCS: 96372; 99284; J1885

== ENCOUNTER 2017-09-07 09:54 | Emergency (ER) | payer MEDICARE ==
[~2017-09-07] VITALS: Ht 165.1 cm; Wt 78.0 kg
[~2017-09-07 09:54] MED LIST changes: -LIDO1PAD52 TOPICAL; -ONDA8TAB7 PO
[2017-09-07 09:59] VITALS: BP 141/117; PULSE 78; RESP 16; TEMP 97.8; O2SAT 95
[2017-09-07] MEDS ORDERED: KETOROLAC TROMETHAMINE 60 MG/2 ML (IM) VIAL IM ONE (11:00)
--- NOTE | 2017-09-07 11:27 | PD ---
HPI Chief Complaint: Musculoskeletal Complaint Time Seen by Provider: 10:39 Travel History International Travel<30 days: No Contact w/Intl Traveler<30days: No Traveled to known affect area: No History of Present Illness HPI 77-year-old female presents emergency department for evaluation of back pain 4 months. Patient was seen at our facility twice on Friday for the same complaint. She denies any new symptoms, injuries, falls since being evaluated last. She denies any exacerbating factors. Patient is ambulatory in the ED. Patient has a shortness breath, chills, fever, chest pain, abdominal pain, nausea, vomiting, diarrhea. Patient states the injection they gave her on Friday help significantly. Patient states she was taken [id number] Tylenol and that was helping. Patient denies any incontinence of urine or stool , saddle numbness, IV drug use. PFSH Past Medical History Hx Anticoagulant Therapy: No Anxiety: Yes Cardiovascular Problems: Yes (hx of [place]) High Cholesterol: Yes Cerebrovascular Accident: Yes (CVA) Diabetes: Yes (BORDERLINE) Patient Takes Glucophage: No Diminished Hearing: Yes (K[place]NA) Hypertension: Yes Immunizations Current: Yes Myocardial Infarction: Yes (x1 at age 36 ?) ?: Not Menopausal: Yes Dilation and Curettage (D&C): Yes Past Surgical History Hysterectomy: Yes (Partial 1979) Tonsillectomy: Yes Other Surgery: Yes (ANAL FISSURE) Social History Alcohol Use: No Tobacco Use: No (NEVER) Substance Use: No Allergies-Medications (Allergen,Severity, Reaction): Coded Allergies: Sulfa (Sulfonamide Antibiotics) (Unverified Allergy, Severe, WAS A CHILD WHEN HAPPENED AND NOT SURE WHAT HAPPENED, 09/07/17) Reported Meds & Prescriptions Reported Meds & Active Scripts Active Tramadol (Tramadol HCl) 50 Mg Tab 50 Mg PO Q6H PRN Reported Acetaminophen 325 Mg Capsule 1 Tab PO Q3HR Review of Systems Except as stated in HPI: all other systems reviewed are Neg Physical Exam Narrative GENERAL: Well-nourished, well-developed 77-year-old female patient in no acute distress. Nontoxic appearing. SKIN: Focused skin assessment warm/dry. HEAD: Normocephalic. Atraumatic. EYES: No scleral icterus. No injection or drainage. NECK: Supple, trachea midline. No JVD or lymphadenopathy. CARDIOVASCULAR: Regular rate and rhythm without murmurs, gallops, or rubs. Pedal pulses +2 bilaterally. RESPIRATORY: Breath sounds equal bilaterally. No accessory muscle use. GASTROINTESTINAL: Abdomen soft, non-tender, nondistended. MUSCULOSKELETAL: No cyanosis, or edema. Bilateral lower extremities neurovascularly intact. BACK: Right lateral thoracic back tenderness. No midline tenderness. No obvious deformity, ecchymosis, cyanosis, erythema, edema. No CVA tenderness. Data Data Last Documented VS Vital Signs Date Time Temp Pulse Resp B/P (MAP) Pulse Ox O2 Delivery O2 Flow Rate FiO2 09/07/17 09:59 97.8 78 16 141/117 (125) 95 Orders Orders Ketorolac Inj (Toradol Inj) (09/07/17 11:00) Ed Discharge Order (09/07/17 11:48) [facility] Medical Decision Making Medical Screen Exam Complete: Yes Emergency Medical Condition: Yes Differential Diagnosis Differential diagnoses include but not limited to chronic back pain, back strain , musculoskeletal pain Narrative Course Patient denies any injuries, falls or trauma. Patient has been evaluated for the same complaint at her facility multiple times with the last time being 2 days ago. Patient states the injection leave her on Friday significantly. Upon looking at her medical records it was noted to be 15 mg IM Toradol. Patient given 50 mg IM Toradol. She reports complete relief of symptoms and asked to be discharged. Patient instructed that she has to follow up with primary care regarding her chronic back pain. Patient given short 5 tablet prescription of tramadol to hold her over until she can follow up with her primary care next week. Patient given instructions to use ice and heating pads to the area to help relieve the pain. Patient stable for discharge and discharged home at this time. Diagnosis Primary Impression: Back pain Qualified Codes: M54.6 - Pain in thoracic spine; G89.29 - Other chronic pain Referrals: Primary Care Physician Patient Instructions: Back Pain (ED), General Instructions Additional Instructions: Please return to emergency department if your symptoms return or worsen. Follow up with your primary care provider. Take medications as prescribed. Scripts Tramadol (Tramadol) 50 Mg Tab 50 MG PO Q6H Y for PAIN, #5 TAB 0 Refills Prov: Meg Cloud MD 09/07/17 Disposition: 01 DISCHARGE HOME Condition: Stable Marycruz Cruz Sep 07, 2017 11:27
[2017-09-07] MEDS ORDERED: TRAM50TA PO (11:44)
[2017-09-11] MEDS ORDERED: DULO1CAP2 PO (15:19)
== END 2017-09-07 11:53 | disposition home or self-care (01) ==
LOC: PHED 09:54 → PHEFT 11:53
DX: M54.6 Pain in thoracic spine (principal); G89.29 Other chronic pain
CPT/HCPCS: 96372; 99284; J1885

== ENCOUNTER 2017-09-10 15:38 | Emergency (ER) | payer MEDICARE ==
[~2017-09-10] VITALS: Ht 165.1 cm; Wt 58.3 kg
[~2017-09-10 15:38] MED LIST changes: +TRAM50TA PO
[2017-09-10 15:44] VITALS: BP 184/81; PULSE 66; RESP 16; TEMP 97.8; O2SAT 99
[2017-09-11] MEDS ORDERED: DULO1CAP2 PO (15:19)
== END 2017-09-10 16:40 | disposition left against medical advice (07) ==
LOC: PHEFT 15:38
DX: Z53.21 Procedure and treatment not carried out due to patient leaving prior to being seen by health care provider (principal)
CPT/HCPCS: 99281

== ENCOUNTER 2017-09-12 04:26 | Emergency (ER) | payer MEDICARE, OTHER ==
[~2017-09-12] VITALS: Ht 165.1 cm; Wt 59.0 kg
[~2017-09-12 04:26] MED LIST changes: -ACET325C PO; +DULO1CAP2 PO; -TRAM50TA PO
[2017-09-12 04:27] VITALS: BP 148/74; PULSE 71; RESP 18; TEMP 98; O2SAT 97
[2017-09-12] MEDS ORDERED: ACET-822 PO (05:02)
[2017-09-12 05:42] LABS: AUTOMATED NEUTROPHIL # 7.2 TH/MM3 (1.8-7.7); BASOPHIL % 0.4 % (0.0-2.0); BILIRUBIN, URINE NEG (NEG); BLOOD, URINE NEG (NEG); EOSINOPHIL # 0.1 TH/MM3 (0-0.4); EOSINOPHIL % 0.8 % (0.0-4.0); GLUCOSE,URINE NEG (NEG); HEMATOCRIT 37.1 % (35.0-46.0); HEMOGLOBIN 12.8 GM/DL (11.6-15.3); KETONE, URINE TRACE mg/dL (NEG); LYMPHOCYTE # 1.6 TH/MM3 (1.0-4.8); MEAN CELL VOLUME 85.1 FL (80.0-100.0); MEAN CORPUSCULAR HEMOGLOBIN 29.4 PG (27.0-34.0); MEAN CORPUSCULAR HGB CONC 34.6 % (32.0-36.0); MEAN PLATELET VOLUME 7.1 FL (7.0-11.0); MONO % 5.5 % (0.0-8.0); MONOCYTE # 0.5 TH/MM3 (0-0.9); NEUT % 76.3 % (16.0-70.0); NITRITE,URINE NEG (NEG); PLATELET COUNT 224 TH/MM3 (150-450); RED BLOOD COUNT 4.36 MIL/MM3 (4.00-5.30); RED CELL DISTRIBUTION WIDTH 12.3 % (11.6-17.2); URINE LEUKOCYTE ESTERASE LARGE (NEG); WHITE BLOOD COUNT 9.4 TH/MM3 (4.0-11.0)
[2017-09-12 05:47] LABS: URINE COLOR YELLOW (YELLW/STRAW); WBC, URINE 15-19 /hpf (0-5); WHITE BLOOD CELL CLUMPS FEW
[2017-09-12 05:48] LABS: BACTERIA, URINE OCC /hpf; RBC, URINE 0-3 /hpf (0-3); SQUAMOUS EPITHELIAL CELL URINE 0-5 /hpf (0-5)
[2017-09-12 05:50] LABS: CHLORIDE 102 MEQ/L (98-107); SODIUM (NA) 137 MEQ/L (136-145)
[2017-09-12 05:53] LABS: ALBUMIN 3.6 GM/DL (3.4-5.0); BICARBONATE 27.8 MEQ/L (21.0-32.0); CALCIUM 8.7 MG/DL (8.5-10.1); GLUCOSE,RANDOM 108 MG/DL (74-106); LIPASE 262 U/L (73-393)
[2017-09-12 05:54] LABS: BLOOD UREA NITROGEN 11 MG/DL (7-18)
[2017-09-12 05:56] LABS: ALT (GPT) 21 U/L (10-53); AST (GOT) 19 U/L (15-37); CREATININE 0.92 MG/DL (0.50-1.00); GLOMERULAR FILTRATION RATE 59 ML/MIN (>89)
[2017-09-12 05:58] LABS: TOTAL BILIRUBIN ADULT 0.5 MG/DL (0.2-1.0)
[2017-09-12 05:59] LABS: ALKALINE PHOSPHATASE 131 U/L (45-117)
[2017-09-12] MEDS ORDERED: CEPHALEXIN MONOHYDRATE 500 MG CAP PO ONE (06:00)
--- NOTE | 2017-09-12 06:26 | PD ---
HPI Chief Complaint: General Weakness Time Seen by Provider: 04:45 Travel History International Travel<30 days: No Contact w/Intl Traveler<30days: No Traveled to known affect area: No History of Present Illness HPI is 77-year-old female lives alone she says she woke up tonight and went to the couch. she took her dog she keeps repeating and referring her dog as" the little dog." Then she said she was "walking around and nothing was working. " She called her son said "nothing is working " He reported to the nurse who called him " mom go back to bed don't call 911" . She said 'No Im calling the ambulance" he encouraged her not to call the ambulance but she called the ambulance and is brought in with vague complaints "nothing feels right nothings working. " Pt appears on initial interview to be severely anxious and delusional" Apparently she recently has been started on antidepressant. She has 4 adult children who take care of her and live close by and visit her often to maintain her at her own home. she has a psychiatric history or possible schizophrenia diagnosis. In the ER she is conversant during HPI, clear at times and then vague about what her complaint is. and paranoid thought process. With me she is pleasant PFSH Past Medical History Hx Anticoagulant Therapy: No Anxiety: Yes Cardiovascular Problems: Yes (hx of [place]) High Cholesterol: Yes Cerebrovascular Accident: Yes (CVA) Diabetes: No Diminished Hearing: Yes (ZUNI) Hypertension: Yes Psychiatric: Yes (09/12/17: RECENT DX OF DEMENTIA, PSYCHOSIS, SCHIZOPHRENIA) Immunizations Current: Yes Myocardial Infarction: Yes (x1 at age 36 ?) Tetanus Vaccination: > 5 Years Influenza Vaccination: Yes ?: Not Menopausal: Yes : 4 Para: 4 Dilation and Curettage (D&C): Yes Past Surgical History Hysterectomy: Yes (Partial 1979) Tonsillectomy: Yes Other Surgery: Yes (ANAL FISSURE) Social History Alcohol Use: No Tobacco Use: No (NEVER) Substance Use: No Allergies-Medications (Allergen,Severity, Reaction): Coded Allergies: Sulfa (Sulfonamide Antibiotics) (Verified Allergy, Severe, WAS A CHILD WHEN HAPPENED AND NOT SURE WHAT HAPPENED, 09/14/17) Reported Meds & Prescriptions Reported Meds & Active Scripts Active Miralax Powder (Polyethylene Glycol 3350 Powder) 17 Gm Powd 17 Gm PO DAILY Mix and dissolve one measuring cap-ful (17 grams) in water or juice. Reported Tylenol Extra Strength (Acetaminophen) 500 Mg Tablet 1 Tab PO Q6HR Duloxetine DR (Duloxetine HCl) 30 Mg Capdr 30 Mg PO DAILY Review of Systems ROS Limitations: Poor Historian (it wasnt right it wasnt working nothing was working ) Except as stated in HPI: all other systems reviewed are Neg Physical Exam Narrative GENERAL: no apparent distress, non toxic appearance . SKIN: Warm and dry. HEAD: Atraumatic. Normocephalic. EYES: Pupils equal and round. No scleral icterus. No injection or drainage. ENT: No nasal bleeding or discharge. Mucous membranes pink and moist. NECK: Trachea midline. No JVD. CARDIOVASCULAR: Regular rate and rhythm. RESPIRATORY: No accessory muscle use. Clear to auscultation. Breath sounds equal bilaterally. GASTROINTESTINAL: Abdomen soft, non-tender, nondistended. Hepatic and splenic margins not palpable. MUSCULOSKELETAL: Extremities without clubbing, cyanosis, or edema. No obvious deformities. NEUROLOGICAL: no focal deficits Psych: delusional talk but related affect anxious and whining , slightly histrionic and hysterical tone Data Data Last Documented VS Vital Signs Date Time Temp Pulse Resp B/P (MAP) Pulse Ox O2 Delivery O2 Flow Rate FiO2 09/12/17 07:57 66 18 122/78 (93) 96 09/12/17 05:03 Room Air 09/12/17 04:27 98.0 Orders Orders Complete Blood Count With Diff (09/12/17 05:22) Comprehensive Metabolic Panel (09/12/17 05:22) Lipase (09/12/17 05:22) Urinalysis - C+S If Indicated (09/12/17 05:22) Urine Culture (09/12/17 05:30) Cephalexin (Keflex) (09/12/17 06:00) Ceftriaxone Inj (Rocephin Inj) (09/12/17 06:00) Ed Discharge Order (09/12/17 06:37) Labs Laboratory Tests Test 09/12/17 05:30 White Blood Count 9.4 TH/MM3 Red Blood Count 4.36 MIL/MM3 Hemoglobin 12.8 GM/DL Hematocrit 37.1 % Mean Corpuscular Volume 85.1 FL Mean Corpuscular Hemoglobin 29.4 PG Mean Corpuscular Hemoglobin Concent 34.6 % Red Cell Distribution Width 12.3 % Platelet Count 224 TH/MM3 Mean Platelet Volume 7.1 FL Neutrophils (%) (Auto) 76.3 % Lymphocytes (%) (Auto) 17.0 % Monocytes (%) (Auto) 5.5 % Eosinophils (%) (Auto) 0.8 % Basophils (%) (Auto) 0.4 % Neutrophils # (Auto) 7.2 TH/MM3 Lymphocytes # (Auto) 1.6 TH/MM3 Monocytes # (Auto) 0.5 TH/MM3 Eosinophils # (Auto) 0.1 TH/MM3 Basophils # (Auto) 0.0 TH/MM3 CBC Comment DIFF FINAL Differential Comment Urine Color YELLOW Urine Turbidity CLEAR Urine pH 6.0 Urine Specific [place] 1.011 Urine Protein NEG mg/dL Urine Glucose (UA) NEG mg/dL Urine Ketones TRACE mg/dL Urine Occult Blood NEG Urine Nitrite NEG Urine Bilirubin NEG Urine Leukocyte Esterase LARGE Urine RBC 0-3 /hpf Urine WBC 15-19 /hpf Urine WBC Clumps FEW Urine Squamous Epithelial Cells 0-5 /hpf Urine Bacteria OCC /hpf Microscopic Urinalysis Comment CULTURE INDICATED Blood Urea Nitrogen 11 MG/DL Creatinine 0.92 MG/DL Random Glucose 108 MG/DL Total Protein 7.0 GM/DL Albumin 3.6 GM/DL Calcium Level 8.7 MG/DL Alkaline Phosphatase 131 U/L Aspartate Amino Transf (AST/SGOT) 19 U/L Alanine Aminotransferase (ALT/SGPT) 21 U/L Total Bilirubin 0.5 MG/DL Sodium Level 137 MEQ/L Potassium Level 3.6 MEQ/L Chloride Level 102 MEQ/L Carbon Dioxide Level 27.8 MEQ/L Anion Gap 7 MEQ/L Estimat Glomerular Filtration Rate 59 ML/MIN Lipase 262 U/L [facility] Medical Decision Making Medical Screen Exam Complete: Yes Emergency Medical Condition: Yes Differential Diagnosis pt has anxiety and it is possibly exacerbated by UTI or viral illness , other family called and feels this is her anxiety and paranoia that is exacerbated Narrative Course labs and URine sent and pt has soft UTI for UTI ceftriaxone iv in ER and sent out on Keflex and Miralax Diagnosis Primary Impression: UTI (urinary tract infection) Qualified Codes: N39.0 - Urinary tract infection, site not specified Additional Impression: Anxiety disorder Qualified Codes: F41.9 - Anxiety disorder, unspecified Scripts Polyethylene Glycol 3350 Powder (Miralax Powder) 17 Gm Powd 17 GM PO DAILY for Constipation, #1 CAN 0 Refills Mix and dissolve one measuring cap-ful (17 grams) in water or juice. Prov: Jude Peterson MD 09/12/17 Disposition: 01 DISCHARGE HOME Condition: Good Jude Peterson MD Sep 12, 2017 06:26
[2017-09-12] MEDS ORDERED: CEPH-460 PO (06:56)
[2017-09-12] MEDS ORDERED: MIRA3350 PO (06:56)
[2017-09-12 07:57] VITALS: BP 122/78
== END 2017-09-12 07:58 | disposition home or self-care (01) ==
LOC: PHED 04:26
DX: N39.0 Urinary tract infection, site not specified (principal); B96.89 Other specified bacterial agents as the cause of diseases classified elsewhere; F41.9 Anxiety disorder, unspecified; E78.00 Pure hypercholesterolemia, unspecified; I10 Essential (primary) hypertension; F20.9 Schizophrenia, unspecified; I25.2 Old myocardial infarction; F03.90 Unspecified dementia, unspecified severity, without behavioral disturbance, psychotic disturbance, mood disturbance, and anxiety; Z86.73 Personal history of transient ischemic attack (TIA), and cerebral infarction without residual deficits
CPT/HCPCS: 80053; 81001; 83690; 85025; 87086; 96365; 99284; J0696

== ENCOUNTER 2017-09-14 07:47 | Emergency (ER) | payer MEDICARE, OTHER ==
[~2017-09-14] VITALS: Ht 165.1 cm; Wt 57.0 kg
[~2017-09-14 07:47] MED LIST changes: +ACET-822 PO; +CEPH-460 PO; +MIRA3350 PO
[2017-09-14 07:54] VITALS: BP 168/70; PULSE 78; RESP 16; TEMP 97.6; O2SAT 98
[2017-09-14] MEDS ORDERED: CYCLOBENZAPRINE HCL 10 MG TAB PO ONE (08:30)
[2017-09-14] MEDS ORDERED: ACETAMINOPHEN 325 MG TAB PO ONE (08:30)
--- NOTE | 2017-09-14 08:47 | PD ---
HPI Chief Complaint: Oral / Dental Pain or Problem Time Seen by Provider: 08:13 Travel History International Travel<30 days: No Contact w/Intl Traveler<30days: No Traveled to known affect area: No History of Present Illness HPI Patient is a 77-year-old female who comes to the ED frequently complaining of back pain. She says she woke up this morning and has been experiencing pain to the middle of her back. She denies any injuries. She denies any radiation of the pain. She denies any difficulty urinating. She denies numbness or tingling. She has not taken anything for her pain. She says she tried to use a heating pad, but this did not provide any relief. PFSH Past Medical History Hx Anticoagulant Therapy: No Anxiety: Yes Cardiovascular Problems: Yes (hx of [place]) High Cholesterol: Yes Cerebrovascular Accident: Yes (CVA) Diabetes: No Diminished Hearing: Yes ([place]ET) Hypertension: Yes Psychiatric: Yes (09/12/17: RECENT DX OF DEMENTIA, PSYCHOSIS, SCHIZOPHRENIA) Immunizations Current: Yes Myocardial Infarction: Yes (x1 at age 36 ?) ?: Not Menopausal: Yes : 4 Para: 4 Dilation and Curettage (D&C): Yes Past Surgical History Hysterectomy: Yes (Partial 1979) Tonsillectomy: Yes Other Surgery: Yes (ANAL FISSURE) Social History Alcohol Use: No Tobacco Use: No (NEVER) Substance Use: No Allergies-Medications (Allergen,Severity, Reaction): Coded Allergies: Sulfa (Sulfonamide Antibiotics) (Verified Allergy, Severe, WAS A CHILD WHEN HAPPENED AND NOT SURE WHAT HAPPENED, 09/14/17) Reported Meds & Prescriptions Reported Meds & Active Scripts Active Miralax Powder (Polyethylene Glycol 3350 Powder) 17 Gm Powd 17 Gm PO DAILY Mix and dissolve one measuring cap-ful (17 grams) in water or juice. Reported Tylenol Extra Strength (Acetaminophen) 500 Mg Tablet 1 Tab PO Q6HR Duloxetine DR (Duloxetine HCl) 30 Mg Capdr 30 Mg PO DAILY Review of Systems General / Constitutional: No: Fever, Chills HENT: No: Headaches, Lightheadedness Cardiovascular: No: Chest Pain or Discomfort Respiratory: No: Shortness of Breath Gastrointestinal: No: Nausea, Vomiting Musculoskeletal: Positive: Pain, No: Edema Skin: No Rash, No Change in Pigmentation Neurologic: No: Paresthesia, Sensory Disturbance Physical Exam Narrative GENERAL: Awake and alert, no acute distress. SKIN: Focused skin assessment warm/dry. HEAD: Atraumatic. Normocephalic. EYES: Pupils equal and round. No scleral icterus. Extraocular movements intact. ENT: Mucous membranes pink and moist. CARDIOVASCULAR: Regular rate and rhythm. No murmur appreciated. RESPIRATORY: No accessory muscle use. Clear to auscultation. Breath sounds equal bilaterally. MUSCULOSKELETAL: No obvious deformities. No clubbing. No cyanosis. No edema. No spinal tenderness on palpation. Pain with movement. NEUROLOGICAL: Awake and alert. No obvious cranial nerve deficits. Motor grossly within normal limits. Normal speech. Data Data Last Documented VS Vital Signs Date Time Temp Pulse Resp B/P (MAP) Pulse Ox O2 Delivery O2 Flow Rate FiO2 09/14/17 07:54 97.6 78 16 168/70 (102) 98 Orders Orders Acetaminophen (Tylenol) (09/14/17 08:30) Cyclobenzaprine (Flexeril) (09/14/17 08:30) MDM Medical Decision Making Medical Screen Exam Complete: Yes Emergency Medical Condition: Yes Medical Record Reviewed: Yes Differential Diagnosis Muscle spasm versus muscular skeletal pain versus chronic pain Narrative Course Patient is a 77-year-old female comes in complaining of back pain. She is IN here for this complaint. Exam shows no acute abnormalities. Patient given Tylenol and Flexeril. Will be discharged home. Advised to take Tylenol as needed at home. Advised follow-up with a primary care doctor. Diagnosis Primary Impression: Back pain Qualified Codes: M54.6 - Pain in thoracic spine; G89.29 - Other chronic pain Patient Instructions: Back Pain (ED), General Instructions Additional Instructions: Take Tylenol as needed for pain. Follow-up with your primary doctor. Return to the ED as needed for any worsening symptoms. Disposition: 01 DISCHARGE HOME Condition: Stable Marycruz Dhaliwal MD Sep 14, 2017 08:47
== END 2017-09-14 09:04 | disposition home or self-care (01) ==
LOC: PHED 07:47
DX: M54.9 Dorsalgia, unspecified (principal); F41.9 Anxiety disorder, unspecified; E78.00 Pure hypercholesterolemia, unspecified; I10 Essential (primary) hypertension; I25.2 Old myocardial infarction; F20.9 Schizophrenia, unspecified; F03.90 Unspecified dementia, unspecified severity, without behavioral disturbance, psychotic disturbance, mood disturbance, and anxiety; Z79.82 Long term (current) use of aspirin; Z86.73 Personal history of transient ischemic attack (TIA), and cerebral infarction without residual deficits
CPT/HCPCS: 99283

== ENCOUNTER 2017-10-03 14:43 | Emergency (ER) | payer MEDICARE, OTHER ==
[~2017-10-03 14:43] MED LIST changes: -CEPH-460 PO
[2017-10-03 15:22] VITALS: BP 138/65; PULSE 75; RESP 14; TEMP 98.1; O2SAT 97
--- NOTE | 2017-10-03 16:14 | PD ---
HPI Chief Complaint: Anxiety Time Seen by Provider: 15:50 Travel History International Travel<30 days: No Contact w/Intl Traveler<30days: No Traveled to known affect area: No History of Present Illness HPI 77 y/o female presents by ambulance for report that she was anxious. Here patient denies specific complaints but states that she was supposed to go to an assisted living facility. She states her daughter has more information. I called her daughter who stated that her mom had called her because she was crawling around on the floor. She states that she wasn't complaining about anything else specifically. History is limited at this time. PFSH Past Medical History Hx Anticoagulant Therapy: No Anxiety: Yes Cardiovascular Problems: Yes (hx of [place]) High Cholesterol: Yes Cerebrovascular Accident: Yes Diabetes: No Diminished Hearing: Yes ([place] Hypertension: Yes Psychiatric: Yes (09/12/17: RECENT DX OF DEMENTIA, PSYCHOSIS, SCHIZOPHRENIA) Immunizations Current: Yes Myocardial Infarction: Yes (x1 at age 36 ?) Menopausal: Yes : 4 Para: 4 Dilation and Curettage (D&C): Yes Past Surgical History Hysterectomy: Yes (Partial 1980) Tonsillectomy: Yes Other Surgery: Yes (ANAL FISSURE) Social History Alcohol Use: No Tobacco Use: No (NEVER) Substance Use: No Allergies-Medications (Allergen,Severity, Reaction): Coded Allergies: Sulfa (Sulfonamide Antibiotics) (Verified Allergy, Severe, WAS A CHILD WHEN HAPPENED AND NOT SURE WHAT HAPPENED, 10/03/17) Reported Meds & Prescriptions Reported Meds & Active Scripts Active Miralax Powder (Polyethylene Glycol 3350 Powder) 17 Gm Powd 17 Gm PO DAILY Mix and dissolve one measuring cap-ful (17 grams) in water or juice. Reported Tylenol Extra Strength (Acetaminophen) 500 Mg Tablet 1 Tab PO Q6HR Duloxetine DR (Duloxetine HCl) 30 Mg Capdr 30 Mg PO DAILY Review of Systems ROS Limitations: Poor Historian Physical Exam Exam Limitations: Poor Historian Narrative GENERAL: Well-nourished, well-developed patient. SKIN: Warm and dry. HEAD: Normocephalic and atraumatic. EYES: No injection or drainage. ENT: No nasal drainage noted. NECK: Supple, trachea midline. CARDIOVASCULAR: Regular rate and rhythm RESPIRATORY: No increased effort. No accessory muscle use. GASTROINTESTINAL: Abdomen soft, non-tender, nondistended. EXTREMITIES: No edema. NEUROLOGICAL: Awake and alert. Motor and sensory grossly within normal limits. Normal speech. Data Data Last Documented VS Vital Signs Date Time Temp Pulse Resp B/P (MAP) Pulse Ox O2 Delivery O2 Flow Rate FiO2 10/03/17 18:00 69 18 136/72 (93) 96 10/03/17 17:10 Room Air 10/03/17 15:22 98.1 Orders Orders Ed Discharge Order (10/03/17 17:11) MDM Medical Decision Making Medical Screen Exam Complete: Yes Emergency Medical Condition: Yes Medical Record Reviewed: Yes (past history confirm, multiple recent visits reviewed) Differential Diagnosis Anxiety, well check, depression Narrative Course Lengthy discussion with daughter over the phone on and they will come and pick her up. They state they will work on getting her to the assisted living facility on Friday. She has no active complaints or suicidal ideation currently. Daughter arrived at bedside. She states she feels comfortable taking patient home and is working on setting her up with an sylvia that they will now see on Friday. Lengthy discussion with both about possible workup and not wanting any other testing or treatment here. Case management also talked with patient who is talked with them multiple times and patient is happy to go to this area, Patient denies any new complaints and states that they are feeling better. all questions answered. daugther knows that follow up is incumbent on them and to return to the emergency room immediately if new or worsening symptoms develop. daugther given strict return precautions, vitals reviewed and are normal, agrees to further workup as an outpatient. Diagnosis Primary Impression: Anxiety disorder Qualified Codes: F41.9 - Anxiety disorder, unspecified Patient Instructions: General Instructions Additional Instructions: return as needed, follow with primary friday Med/Other Pt SpecificInfo: No Change to Meds Disposition: 01 DISCHARGE HOME Condition: Stable Odalys Tyler MD Oct 03, 2017 16:14
[2017-10-03 17:10] VITALS: BP 155/68; PULSE 66; RESP 16; O2SAT 97
[2017-10-03 18:00] VITALS: BP 136/72
== END 2017-10-03 18:00 | disposition home or self-care (01) ==
LOC: PHED 14:43
DX: F41.9 Anxiety disorder, unspecified (principal); I10 Essential (primary) hypertension; E78.00 Pure hypercholesterolemia, unspecified; H91.90 Unspecified hearing loss, unspecified ear; I25.2 Old myocardial infarction; Z86.59 Personal history of other mental and behavioral disorders
CPT/HCPCS: 99282